=== PATIENT | female | born 1950 | race Caucasian/White ===

== ENCOUNTER 2017-05-26 23:07 | Observation (INO) | payer BC, MEDICARE ==
[2017-05-27 00:32] LABS: #Eosinphils 0.2 thou/uL (0.0-0.7); #Lymphocytes 1.7 thou/uL (1.20-3.40); #Neutrophils 10.2 thou/uL (1.40-6.50); %Basophils 0.1 % (0.0-1.0); %Eosinophils 1.5 % (0.0-10.0); %Lymphocytes 12.8 % (21.0-51.0); %Monocytes 7.5 % (0.0-10.0); %Neutrophils 77.9 % (42.0-75.0); Hemoglobin 12.4 g/dL (12.0-16.0); Mean Corpuscular HGB CONC 32.3 g/dL (32.0-36.0); Mean Corpuscular Hemoglobin 27.9 pg (27.0-31.0); Mean Corpuscular Volume 86.3 fl (81.0-99.0); Mean Platelet Volume 7.8 fL (7.4-10.4); Platelet Count 238 thou/uL (130-400); RBC Distribution Width 16.6 % (11.5-14.5); Red Blood Cell (RBC) Count 4.44 mill/uL (4.20-5.40); White Blood Cell (WBC) Count 13.1 thou/uL (4.8-10.8)
[2017-05-27 01:02] LABS: ALT (SGPT) 16 U/L (8-55); AST (SGOT) 22 U/L (5-34); Albumin 3.4 g/dL (3.4-4.8); Alkaline Phosphatase 66 U/L (40-150); Anion Gap 13 mmol/L (10-20); BUN (Urea Nitrogen) 25 mg/dL (9.8-20.1); Bilirubin, Total 0.3 mg/dL (0.2-1.2); CK (CPK) 563 U/L (29-168); Calc. Creatinine Clearance 0 mL/min (70-130); Calcium 8.4 mg/dL (7.8-10.44); Carbon Dioxide 24 mmol/L (23-31); Chloride 103 mmol/L (98-107); Estimated GFR-MDRD 41; Globulin 2.2 g/dL (2.4-3.5); Glucose 131 mg/dL (80-115); Potassium 3.8 mmol/L (3.5-5.1); Protein, Total 5.6 g/dL (6.0-8.3); Sodium 136 mmol/L (136-145)
[2017-05-27 01:05] LABS: CKMB 3.9 ng/mL (0-6.6); Troponin I 0.023 ng/mL (< 0.028)
[2017-05-27] MEDS ORDERED: Ondansetron HCl/PF 4 MG/2 ML Vial IVP PRN (02:23)
[2017-05-27] MEDS ORDERED: Acetaminophen 325 MG TAB PO PRN (02:23)
[2017-05-27] MEDS ORDERED: Ondansetron ODT 4 MG TAB SL PRN (02:23)
[2017-05-27] MEDS ORDERED: Fentanyl 100 MCG/2 ML VIAL SLOW IVP PRN (02:23)
[2017-05-27] MEDS ORDERED: cefTRIAXone\\ROCEPHIN 1 GM, Syringe 0.4 ML in Sterile Water 9.6 ML SLOW IVP SCH (02:30)
[2017-05-27 03:11] VITALS: BMI 57.1
[2017-05-27] MEDS ORDERED: Albuterol Sulfate 2.5 mg/3 ml Neb NEB PRN (03:52)
[2017-05-27] MEDS ORDERED: Loperamide HCl 2 MG CAP PO PRN (03:53)
[2017-05-27] MEDS ORDERED: Dextrose 50% Abboject 50 ML SYRINGE SLOW IVP PRN (03:58)
[2017-05-27] MEDS ORDERED: HumaLOG 300 UNITS/3 ML VIAL SC PRN (03:58)
[2017-05-27] MEDS ORDERED: Dextrose 5% in Water 1,000 ML IV PRN (03:58)
[2017-05-27] MEDS ORDERED: Dulaglutide [Trulicity] 0.75 MG SC SCH (04:15)
[2017-05-27] MEDS: Hydrocortisone 10 mg Tablet PO SCH ×3 (04:24→18:08)
[2017-05-27] MEDS: Levothyroxine Sodium 112 MCG TAB PO SCH (04:24)
[2017-05-27] MEDS: Levothyroxine Sodium 25 MCG TAB PO SCH (04:24)
[2017-05-27] MEDS: Sodium Chloride 0.9% 1,000 ML IV SCH ×2 (04:24→13:33)
[2017-05-27 04:26] LABS: #Eosinphils 0.2 thou/uL (0.0-0.7); #Monocytes 1.2 thou/uL (0.11-0.59); #Neutrophils 8.2 thou/uL (1.40-6.50); %Basophils 0.1 % (0.0-1.0); %Eosinophils 1.9 % (0.0-10.0); %Lymphocytes 17.2 % (21.0-51.0); %Monocytes 10.3 % (0.0-10.0); %Neutrophils 70.5 % (42.0-75.0); Hemoglobin 12.4 g/dL (12.0-16.0); Mean Corpuscular HGB CONC 32.4 g/dL (32.0-36.0); Mean Corpuscular Hemoglobin 28.4 pg (27.0-31.0); Mean Corpuscular Volume 87.7 fl (81.0-99.0); Mean Platelet Volume 8.2 fL (7.4-10.4); Platelet Count 242 thou/uL (130-400); RBC Distribution Width 16.5 % (11.5-14.5); Red Blood Cell (RBC) Count 4.36 mill/uL (4.20-5.40); White Blood Cell (WBC) Count 11.7 thou/uL (4.8-10.8)
[2017-05-27 04:37] LABS: Lactic Acid 1.3 mmol/L (0.5-2.2)
[2017-05-27 04:40] LABS: Anion Gap 12 mmol/L (10-20); BUN (Urea Nitrogen) 24 mg/dL (9.8-20.1); Calc. Creatinine Clearance 97 mL/min (70-130); Calcium 8.5 mg/dL (7.8-10.44); Carbon Dioxide 29 mmol/L (23-31); Chloride 102 mmol/L (98-107); Estimated GFR-MDRD 40; Glucose 103 mg/dL (80-115); Potassium 3.6 mmol/L (3.5-5.1); Sodium 139 mmol/L (136-145)
--- NOTE | 2017-05-27 07:47 | RAD ---
SINGLE VIE WOF THE CHEST: COMPARISON: 03/23/15. HISTORY: Abdominal pain and diarrhea. Dyspnea. FINDINGS: Single view of the chest shows a normal sized cardiomediastinal silhouette. There is no evidence of c onsolidation, mass, or pleural effusion. The bones are unremarkable. IMPRESSION: No evidence of acute cardiopulmonary disease. POS: [facility]
--- NOTE | 2017-05-27 08:09 | HP ---
PRIMARY CARE PHYSICIAN: Mariaa Escobar M.D. PRESENTING COMPLAINT: Abdominal pain, vomiting, diarrhea. HISTORY OF PRESENT ILLNESS: Ms. Shireen Bell is a 67-year-old female who presents to the emergency room with complaint of diarrhea which started around 1:00 p.m. today. She reports multiple episodes that were nonbloody, nonmucoid associated with right upper and lower quadrant abdominal pain describe d as sharp, does not radiate, rated 8/10, increased by movement and decreased after she was given fen tanyl. It was associated with episodes of vomiting, which were nonbilious and consisting of recently ingested meal. She had 3 episodes of vomiting. She reports eating a chicken sandwich about an hour before onset of symptoms. No history of eating any unusual meal and no sick contacts. She denies c hest pain, cough, shortness of breath, or sputum production. She has no recent antibiotic use. 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 PAST SURGICAL HISTORY: Lap band in 2007, temporary colostomy in the , and a pituitary gland rem oval in 1987. PSYCHIATRIC HISTORY: Depression. SOCIAL HISTORY: Denies smoking cigarette, drinking alcohol, or use of illicit drugs. ALLERGIES: DEMEROL, VIBRAMYCIN, GUAIFENESIN, and ATIVAN. REVIEW OF SYSTEMS: Constitutional: Negative. HEENT: Negative. Cardiovascular: Negative. Respir atory: Denies cough or shortness of breath. Gastrointestinal: Per HPI. Genitourinary: Negative. Musculoskeletal: Negative. Skin: Negative. Neurologic: Negative. Hematologic/Lymphatic: Negat pierce. Allergy/Immunology: Negative. Psychiatric: Negative. PHYSICAL EXAMINATION: VITAL SIGNS: Blood pressure 101/55, pulse rate 96, respiratory rate 22, temperature 99.9 degree Fahr enheit, oxygen saturation 94% on room air (she was desaturating to the 80s on room air). CONSTITUTIONAL: Not in acute distress. Appears nontoxic and pain free, alert and well oriented. HEENT: Normocephalic, atraumatic. Not pale, anicteric. Dry mucous membranes. RESPIRATORY: Vesicular breath sounds bilaterally. No wheezes, rales, or rhonchi. CARDIOVASCULAR: S1, S2 only. No murmurs, rubs or gallops. Regular rate and rhythm. ABDOMEN: Soft, mild tenderness in the right upper and lower quadrants. Bowel sounds normoactive. M ass noted in the left lower quadrant abdominal wall (the patient states that it is chronic). NEUROLOGIC: Alert and well oriented. No focal deficits. PSYCHIATRIC: Normal mood and affect. MUSCULOSKELETAL: No edema. SKIN: Warm, dry, well-perfused. No rashes or lesions. LABORATORY DATA: CBC with WBC of 13.1 with 77% neutrophils and 12.8% lymphocytes. Serum chemistry w ith elevated BUN/creatinine of 25/1.29 and lactic acid 2.4, glucose 131. Chest x-ray no acute findin gs. CT abdomen/pelvis shows finding of nonobstructing left renal calculus, stable fluid collection i n the anterior abdominal wall since 03/2015. ASSESSMENT AND PLAN: 1. Abdominal pain: She presented with abdominal pain with diarrhea and vomiting. Differentials inc lude colitis, acute gastroenteritis. The patient has been refused by the general surgeon as she has a history of a lap band. She is started on IV ceftriaxone and will review patient in the morning. I n the meantime, we will get stool studies to rule out other infectious causes like clostridium diffic ile, although this is less likely as the patient has no recent exposure to antibiotics. 2. Hypoxia. The patient from chart review, has a history of asthma and is not on any bronchodilator at home. We will continue oxygen supplementation, try to wean off and placed on albuterol nebulizer therapy. 3. Acute kidney injury. We will hydrate and reassess. 4. Hypertension. Blood pressure is well controlled, although she seems to be running hypotensive in the emergency room with hold antihypertensives for now. 5. Hyperlipidemia. We will continue atorvastatin. 6. Hypothyroidism. We will obtain TSH and continue levothyroxine. 7. Panhypopituitarism. We will continue Cortef and home medications. 8. Deep venous thrombosis prophylaxis with Lovenox. CODE STATUS: FULL CODE.
[2017-05-27] MEDS: Atorvastatin Calcium 40 MG TAB PO SCH (08:48)
[2017-05-27] MEDS: Gabapentin 300 MG CAP PO SCH ×2 (08:48→21:06)
[2017-05-27] MEDS: Famotidine 20 MG TAB PO SCH ×2 (08:48→21:06)
[2017-05-27] MEDS: Cyanocobalamin (Vitamin B-12) 1,000 MCG TAB PO SCH (08:48)
[2017-05-27] MEDS: Allopurinol 300 MG TAB PO SCH (08:49)
[2017-05-27] MEDS: Nabumetone 500 MG TAB PO SCH ×2 (09:28→21:06)
[2017-05-27] MEDS: Enoxaparin Sodium 40 MG/0.4 ML SYRINGE SC SCH (09:28)
[2017-05-27] MEDS: Acetaminophen/Codeine 30-300mg Tablet PO PRN (10:44)
--- NOTE | 2017-05-27 11:00 | CON ---
DATE OF CONSULTATION: 05/27/2017 GENERAL SURGERY CONSULTATION CHIEF COMPLAINT: Nausea, vomiting, and diarrhea. HISTORY OF PRESENT ILLNESS: This is a 67-year-old female who had the sudden onset of severe nausea, vomiting, abdominal pain, and diarrhea day before yesterday. She went to the emergency room at [facility] as she has [employer] insurance. Apparently, the surgeon there found that she has neal d a lap band placed 9 years ago and felt she needed to be transferred here. She has not had any prob bo with lap band, but it just has not been working, she has been gaining weight. The diarrhea is wa surinder, no blood. PAST MEDICAL HISTORY: Morbid obesity, hypertension, she has had questionable myocardial infarction i n the past. She has irritable bowel and hypopituitary. PAST SURGICAL HISTORY: She has had cholecystectomy. She had a pituitary tumor removed in 1987. She had a lap band in 2007. She reports that she has had a colectomy with colostomy which was then reve rsed by Dr. Cárdenas. She has had a ventral hernia repair with mesh by Dr. Kimble at [facility]. MEDICATIONS: Include hydrochlorothiazide, vitamin B2, atorvastatin, Robaxin, Tylenol #3, Relafen, am lodipine, omeprazole, Synthroid, hydrocortisone, allopurinol. ALLERGIES: She has allergies to DEMEROL, ATIVAN, GUAIFENESIN, VIBRAMYCIN, and IODINE. SOCIAL HISTORY: She is . She works at [employer]. No tobacco, no alcohol. FAMILY HISTORY: CVA and colon cancer. PHYSICAL EXAMINATION: VITAL SIGNS: Temperature 98, pulse 77, blood pressure 125/60. GENERAL: She is a morbidly obese female. Does not appear to be in any distress. HEENT: Unremarkable. LUNGS: Clear. HEART: Regular rate and rhythm. ABDOMEN: Morbidly obese. She has a bulge just above her umbilicus with an overlying scar. It does not reduce, mildly tender. She has diffuse tenderness throughout the abdomen, but this bulge is no m ore tender than anything else. EXTREMITIES: She is just morbidly obese. LABORATORY DATA AND IMAGING DATA: White count 11.7, hemoglobin and hematocrit 12 and 38 and platelet count 242. Electrolytes show an elevated creatinine of 1.3, BUN of 24. The CT was sent over from [facility], I was able to get our radiologist to read it. The lap band appeared to be in place. No obstruction there. She has subcutaneous fluid collection which does not appear to be infected, w hich she has had for a while. She has an acute colitis of the sigmoid, colon, and rectum. ASSESSMENT: Colitis, lap band status, morbid obesity, steroid dependent. PLAN: GI consultation. We will empty her lap band.
--- NOTE | 2017-05-27 11:04 | OP ---
DATE OF PROCEDURE: 05/27/2017 PREOPERATIVE DIAGNOSIS: Lap band in place. SURGEON: Riley De La Garza M.D. PROCEDURE PERFORMED: Removal of fluid from lap band. INDICATIONS: The patient is a 67-year-old morbidly obese female with a lap band that was transferred from [facility] because she was having abdominal pain. It turns out she has colitis, but they would not see her because she has a lap band. She has been vomiting. FINDINGS: A 6 mL of saline removed from the system to empty the band. PROCEDURE: The skin was prepped with alcohol. The port was accessed with the Macdonald needle, 6 mL of saline removed. She tolerated the procedure well.
--- NOTE | 2017-05-27 12:43 | PDOC.EVN ---
Event Note - Event Note Event Note: CC: Abdominal pain sun: pt was seen by hospitalist early this morning. C/O abdominal pain, improving with pain medication VS: Stable General: Awake, alert, oriented x3 HEENT: Anterior nares patent, nose normal CVS: S1S2 present, rrr, no murmur, no rubs, no gallop RS: No wheezing, no rhonchi, no accessory muscle usage seen GI: mild tender to palpate, distended, no guarding FOOD EDITOR: CN intact, no cerebellar signs Psych: Mood calm Labs: reviewed A/P: Pt is 67 yrs old female 1. Abdominal pain 2. MO 3. HTN 4. Hypothyroidism Plan surgery on boars. continue current treatment creatinine stable. continue iv fluids continue bp meds check labs in am case d/w pt & RN
--- NOTE | 2017-05-27 16:45 | CON ---
DATE OF CONSULTATION: 05/27/2017 HISTORY OF PRESENT ILLNESS: The patient is a 67-year-old female, who was in her normal sta te of health until the day prior to admission when she developed nausea, vomiting, and diarrhea. She reports generalized abdominal pain, which was crampy in nature. She did have some nausea and a sing le episode of vomiting. This vomitus was brownish in nature. She also had diarrhea, which was nonbl oody. She has had a similar episode, she said approximately 2 years prior when she was hospitalized here at [facility] and was seen by Dr. Dia. At that time, it was felt she had an infectious diarrhea. She has had a history of malignant polyp and underwent a colonoscopy by Dr. Cole in 2005. PAST MEDICAL HISTORY: Includes osteoarthritis, irritable bowel syndrome, diabetes mellitus, hyperten jorge alberto, and hypopituitarism. PAST SURGICAL HISTORY: Includes a cholecystectomy; pituitary removal; lap band; colostomy for perito nitis after colon perforation after colonoscopy performed out of town, this was done in the . MEDICATIONS: Included allopurinol 100 mg 1 p.o. daily; hydrocortisone 10 mg 1 p.o. daily, 20 mg q.a. m.; Synthroid 137 mcg 1 p.o. daily; omeprazole 20 mg p.o. daily; amlodipine 10 mg p.o. daily; Relafen 500 mg b.i.d.; Tylenol #3 of 30 mg p.o. daily; Robaxin 500 mg p.o. at bedtime; atorvastatin 40 mg p. o. at bedtime; vitamin D2 of 50,000 units 1 p.o. daily; hydrochlorothiazide 12.5 mg p.o. daily. ALLERGIES: Include DOXYCYCLINE, DEMEROL, GUAIFENESIN, IODINE, LORAZEPAM, MEPERIDINE, and VANCOMYCIN. SOCIAL HISTORY: She does not smoke, does not drink. 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 FAMILY HISTORY: Negative for GI or liver disease. REVIEW OF SYSTEMS: Constitutional: No fever or chills, no weight loss. Eyes: No blurred vision or double vision. ENT: No sore throat or earaches. Cardiovascular: No chest pain or palpitation. P ulmonary: No shortness of breath, cough or wheezing. Gastrointestinal: See above. : No hematur ia or dysuria. Musculoskeletal: No joint pain or muscle weakness. Skin: No rashes. Neurologic: No numbness or seizure activity. PHYSICAL EXAMINATION: GENERAL: Shows a morbidly obese female, in no acute distress. VITAL SIGNS: Temperature is 98.6, pulse 66, respiratory rate 18, blood pressure 146/68. HEENT: Unremarkable. NECK: Supple. CHEST: Clear. CARDIOVASCULAR: Regular rate and rhythm. ABDOMEN: Soft. Diffusely tender, but mildly so. She has a lump in the mid abdomen, which is consis tent with her seroma that has been seen on previous CT. RECTAL: Deferred. EXTREMITIES: Normal. NEUROLOGIC: Nonfocal. LABORATORY DATA: Shows a white blood cell count 11.7, hemoglobin 12.4, and hematocrit 38.3. Food Mobile Driver gary: Significant for BUN 24, creatinine 1.34. CBC over at [facility] showed a wh ite blood cell count of 16.9, hemoglobin 13, hematocrit 41.3. C. difficile was negative. Urinalysis was essentially negative. IMAGING: CT showed a large anterior abdominal wall fluid collection. There is a midline gastric ban ding device was noted, but no other abnormalities. ASSESSMENT: 1. Acute nausea, vomiting, and diarrhea. 2. History of a lap band -- according to notes, the general surgeon at [facility] refused admissi on there because of the lap band had migrated to the gastroesophageal junction. This is difficult to rectify since the patient really had no prior problems with her lap band. Despite this, Dr. Frederic longo emoved the fluid out of the lap band and this should take care of any symptomatic problems if the lap band did indeed migrate. 3. History of pancreatitis. 4. History of malignant polyp -- the patient's last colonoscopy was 2005. 5. Morbid obesity. 6. Generalized abdominal pain. RECOMMENDATIONS: The patient is in need of colonoscopy and she has been unsuccessful to scheduling t [facility] as an outpatient. Considering her medical problems, we will go ahead and perform that while she was here. At the same time, we will add an EGD to see if there is problem with a lap band migration.
[2017-05-27] MEDS ORDERED: GoLYTELY 4,000 ml Bottle PO SCH (18:15)
[2017-05-28] MEDS: Levothyroxine Sodium 25 MCG TAB PO SCH (05:12)
[2017-05-28] MEDS: Levothyroxine Sodium 112 MCG TAB PO SCH (05:12)
[2017-05-28] MEDS: Acetaminophen/Codeine 30-300mg Tablet PO PRN ×2 (05:12→16:40)
[2017-05-28 05:13] LABS: Eosinophils 3 % (0-10); Hemoglobin 10.8 g/dL (12.0-16.0); Hemoglobin A1c 5.8 % (4.0-6.0); Lymphocytes 23 % (21-51); MDiff Complete? YES; Mean Corpuscular HGB CONC 32.8 g/dL (32.0-36.0); Mean Corpuscular Hemoglobin 28.6 pg (27.0-31.0); Mean Corpuscular Volume 87.2 fl (81.0-99.0); Mean Platelet Volume 7.8 fL (7.4-10.4); Monocytes 4 % (0-10); Neutrophil 69 % (42-75); PLT Morphology Comment Appears Adequate; Platelet Count 215 thou/uL (130-400); RBC Distribution Width 16.4 % (11.5-14.5); RBC Morphology Normal; Reactive Lymphocytes 1 % (0-10); Red Blood Cell (RBC) Count 3.77 mill/uL (4.20-5.40); White Blood Cell (WBC) Count 9.6 thou/uL (4.8-10.8)
[2017-05-28 05:19] LABS: Anion Gap 10 mmol/L (10-20); BUN (Urea Nitrogen) 11 mg/dL (9.8-20.1); Calc. Creatinine Clearance 165 mL/min (70-130); Calcium 8.5 mg/dL (7.8-10.44); Carbon Dioxide 27 mmol/L (23-31); Chloride 107 mmol/L (98-107); Estimated GFR-MDRD 73; Glucose 84 mg/dL (80-115); Potassium 3.8 mmol/L (3.5-5.1); Sodium 140 mmol/L (136-145)
[2017-05-28] MEDS: Enoxaparin Sodium 40 MG/0.4 ML SYRINGE SC SCH (08:19)
[2017-05-28] MEDS: Atorvastatin Calcium 40 MG TAB PO SCH (08:24)
[2017-05-28] MEDS: Hydrocortisone 10 mg Tablet PO SCH ×2 (08:24→18:03)
[2017-05-28] MEDS: Gabapentin 300 MG CAP PO SCH ×2 (08:24→20:41)
[2017-05-28] MEDS: Allopurinol 300 MG TAB PO SCH (08:25)
[2017-05-28] MEDS: Nabumetone 500 MG TAB PO SCH ×2 (08:25→20:41)
[2017-05-28] MEDS: Cyanocobalamin (Vitamin B-12) 1,000 MCG TAB PO SCH (08:25)
[2017-05-28] MEDS: Famotidine 20 MG TAB PO SCH ×2 (10:10→20:41)
[2017-05-28] MEDS ORDERED: PROPOFOL 200 MG/20 ML VIAL ONE (13:55)
[2017-05-28] MEDS ORDERED: Lidocaine 1% PF 5 ML VIAL ONE (13:55)
--- NOTE | 2017-05-28 14:32 | PDOC.PN ---
- Subjective Encounter Start Date: 05/28/17 Encounter Start Time: 07:45 -: old records requested/rev Pt seen and exmained, chart reviewed in its entirety. Ruth patton my first visit with this patient. Pt admitted yesterday for abs pain, n/V. alla suggested Lap Band migration, [facility] refused, so pt trnasferred here. Pt admitted, seen by Dr Pedraza who removed fluid form the lap band and GI consulte.d Dr Munguia saw the pat and arranged for colonoscopy and EGD today for evaluation. Pt NPO, carlene Bowel prep ok. less tender to abdomen, slept okay No f/C, no N/V, no CP or SOB, no new complaints 10 point ROS performed and neg for all systems except as per HPI - Objective Resuscitation Status: Resuscitation Status FULL:Full Resuscitation MAR Reviewed: Yes Vital Signs & Weight: Vital Signs (12 hours) Temp Pulse Resp BP Pulse Ox 05/28/17 10:43 97.6 F 62 20 134/62 91 L 05/28/17 08:20 98.9 F 65 22 H 05/28/17 08:00 98.9 F 65 22 H 146/65 H 91 L 05/28/17 04:25 99.5 F 72 16 133/63 92 L Weight Weight 325 lb 4.8 oz I&O: 05/27/17 05/28/17 05/29/17 06:59 06:59 06:59 Intake Total 118 2670 Output Total 300 1750 Balance -182 920 Result Diagrams: 05/28/17 04:32 05/28/17 04:32 Additional Labs: Accuchecks 05/28/17 05/28/17 05/27/17 11:00 06:22 21:11 POC Glucose 92 86 147 H 05/27/17 16:25 POC Glucose 121 H Radiology Reviewed by me: Yes EKG Reviewed by me: Yes Phys Exam - Physical Examination Constitutional: NAD HEENT: PERRLA, moist MMs, sclera anicteric, oral pharynx no lesions Neck: no nodes, no JVD, supple, full ROM Respiratory: no wheezing, no rales, no rhonchi, clear to auscultation bilateral Cardiovascular: RRR, no significant murmur, no rub Gastrointestinal: soft, non-tender, no distention, positive bowel sounds Musculoskeletal: pulses present, edema present Neurological: non-focal, normal sensation, moves all 4 limbs Lymphatic: no nodes Psychiatric: normal affect, A&O x 3 Skin: no rash, normal turgor, cap refill <2 seconds Dx/Plan (1) Colitis presumed to be due to infection Code(s): A09 - INFECTIOUS GASTROENTERITIS AND COLITIS, UNSPECIFIED Status: Acute Comment: sherrie culture negative, c diff neg, fecal leukocyes positive. for colonoscopy today (2) Gastroenteritis Code(s): K52.9 - NONINFECTIVE GASTROENTERITIS AND COLITIS, UNSPECIFIED Status : Acute (3) Asthma Code(s): J45.909 - UNSPECIFIED ASTHMA, UNCOMPLICATED Status: Chronic Qualifiers: Asthma severity: unspecified severity Asthma persistence: unspecified Asthma complication type: unspecified Qualified Code(s): J45.909 - Unspecified asthma, uncomplicated (4) Diabetes Code(s): E11.9 - TYPE 2 DIABETES MELLITUS WITHOUT COMPLICATIONS Status: Chronic Qualifiers: Diabetes mellitus type: type 2 Diabetes mellitus complication status: with unspecified complications Qualified Code(s): E11.8 - Type 2 diabetes mellitus with unspecified complications (5) Hypertension Code(s): I10 - ESSENTIAL (PRIMARY) HYPERTENSION Status: Chronic Qualifiers: Hypertension type: essential hypertension Qualified Code(s): I10 - Essential (primary) hypertension (6) Hypothyroid Code(s): E03.9 - HYPOTHYROIDISM, UNSPECIFIED Status: Chronic Qualifiers: Hypothyroidism type: acquired Qualified Code(s): E03.9 - Hypothyroidism, unspecified (7) IBS (irritable bowel syndrome) Status: Chronic Qualifiers: Irritable bowel syndrome type: with diarrhea Qualified Code(s): K58.0 - Irritable bowel syndrome with diarrhea (8) Morbid obesity due to excess calories Code(s): E66.01 - MORBID (SEVERE) OBESITY DUE TO EXCESS CALORIES Status: Chronic (9) Panhypopituitarism Code(s): E23.0 - HYPOPITUITARISM Status: Chronic - Plan cont current plan of care, PT/OT, out of bed/ambulate, DVT proph w/SCDs * . follow up on endoscopy results
--- NOTE | 2017-05-28 18:39 | OP ---
DATE OF PROCEDURE: 05/28/2017 PROCEDURES: Esophagogastroduodenoscopy with biopsy, colonoscopy with biopsy. INDICATION FOR PROCEDURE: Abdominal pain, diarrhea. DESCRIPTION OF PROCEDURE: After the risks and benefits of the procedure were explained to the patien t including risks of bleeding, infection, perforation, reaction to anesthesia and/or pain, informed c onsent was obtained. Patient was then taken to the endoscopy suite where deep sedation was administe red via propofol and anesthesia support. The standard gastroscope was then introduced into the mouth with intubation of the esophagus, stomach and proximal small intestine with the findings listed belo w. The patient tolerated the procedure well with no immediate perioperative complications. FINDINGS: ESOPHAGUS: Normal appearing mucosa was seen in the proximal, mid and distal esophagus. There was no evidence of erosions, ulcerations, mass lesions or active/recent bleeding. STOMACH: Normal appearing mucosa was seen in the gastric cardia fundus, body, antrum and incisura. There was no evidence of erosions, ulcerations, mass lesions or active/recent bleeding. DUODENUM: Normal appearing mucosa was seen in both the duodenal bulb and second portion of the duode num. There was no evidence of erosions, ulcerations, mass lesions or active/recent bleeding. Random biopsies were taken from the second portion of the small intestine for evaluation of diarrhea and po ssible infectious or malabsorptive etiology. IMPRESSION: Normal upper endoscopy. RECOMMENDATIONS: Proceed to colonoscopy. PROCEDURE: Colonoscopy. DESCRIPTION OF PROCEDURE: After the risks and benefits of the procedure were explained to the patien t including risks of bleeding, infection, perforation, reaction to anesthesia and/or pain, informed c onsent was obtained for the colonoscopy. The patient was then taken to the endoscopy suite where jelani p sedation was administered via propofol and anesthesia support. The standard colonoscope was then i ntroduced into the rectum with advancement to the cecum with mild difficulty. The colonic preparatio n was fair to good with aggressive irrigation and suctioning. The patient tolerated the procedure we ll with no immediate perioperative complications. DIGITAL RECTAL EXAMINATION: Small external hemorrhoids were seen on external examination. COLON FINDINGS: Normal appearing mucosa was seen at the ileocecal valve, appendiceal orifice and wit hin the cecum itself. Normal appearing mucosa was seen in the ascending, proximal and mid transverse colon; however, at approximately 80 cm which correlated with the approximate splenic flexure, there were diffuse ulcerations and increased mucosal erythema extending from 80 cm to 70 cm. There was no evidence of active/recent bleeding or mass lesions associated with these ulcerations. Multiple biops ies were taken from this region and placed in a jar for evaluation. Of note, minimal bleeding was no dong upon obtaining these biopsy samples. Just distal to the area of ulceration between 60-70 cm, the re was some increased mucosal erythema, mild granularity and loss of vascularity, but then starting a t 60 cm, normal appearing mucosa was seen until 40 cm. At approximately 40 cm past the anal verge, t he surgical change associated with an end-to-side anastomosis was seen with retained surgical drake seen during this evaluation. Just distal to the anastomosis, 2-3 small superficial were also seen s imilar in appearance to the ulcerations seen more proximally. Normal appearing mucosa was then seen in the sigmoid colon and rectum. Small internal hemorrhoids were seen on rectal retroflexion. IMPRESSION: 1. Diffuse ulcerations seen from 80 to 70 cm past the anal verge correlating with the splenic flexur e and appearing to be ischemic colitis. 2. Surgical changes associated with end-to-side colonic anastomosis seen at 40 cm. 3. Mild ulcerations were seen at the surgical anastomosis as well. 4. Both internal and external hemorrhoids. RECOMMENDATIONS: 1. Follow with primary inpatient team. 2. We would maintain normotensive pressures in this patient given probable ischemic changes noted on colonoscopy today. 3. Would obtain CT or MR angiography based on the patient's renal function and evaluation of possibl e stenoses contributing to the ischemic changes noted on colonoscopy today. 4. We will continue to trend hemoglobin and hematocrit and transfuse as necessary to maintain hemogl obin and hematocrit of 7/21. 5. Follow up on biopsies obtained today.
[2017-05-28] MEDS: predniSONE 50 MG TAB PO SCH (20:02)
[2017-05-28] MEDS ORDERED: Lisinopril 20 MG TAB PO SCH (23:45)
[2017-05-28] MEDS ORDERED: hydrALAZINE 20 MG/ML VIAL SLOW IVP SCH (23:45)
[2017-05-28] MEDS ORDERED: hydrALAZINE 20 MG/ML VIAL SLOW IVP PRN (23:47)
[2017-05-29] MEDS: predniSONE 50 MG TAB PO SCH ×2 (02:01→08:04)
[2017-05-29] MEDS: Acetaminophen/Codeine 30-300mg Tablet PO PRN ×2 (02:02→08:16)
[2017-05-29] MEDS: Levothyroxine Sodium 25 MCG TAB PO SCH (05:14)
[2017-05-29] MEDS: Levothyroxine Sodium 112 MCG TAB PO SCH (05:14)
[2017-05-29] MEDS ORDERED: diphenhydrAMINE 50 MG CAP PO SCH (08:00)
[2017-05-29] MEDS: Cyanocobalamin (Vitamin B-12) 1,000 MCG TAB PO SCH (08:04)
[2017-05-29] MEDS: Hydrocortisone 10 mg Tablet PO SCH (08:05)
[2017-05-29] MEDS: Gabapentin 300 MG CAP PO SCH (08:05)
[2017-05-29] MEDS: Famotidine 20 MG TAB PO SCH (08:05)
[2017-05-29] MEDS: Atorvastatin Calcium 40 MG TAB PO SCH (08:05)
[2017-05-29] MEDS: Nabumetone 500 MG TAB PO SCH (08:08)
[2017-05-29] MEDS: Allopurinol 300 MG TAB PO SCH (08:08)
[2017-05-29] MEDS: Enoxaparin Sodium 40 MG/0.4 ML SYRINGE SC SCH (08:08)
[2017-05-29] MEDS ORDERED: Hydrochlorothiazide 25 MG TAB PO SCH (09:00)
[2017-05-29] MEDS ORDERED: Amlodipine 10 MG TAB PO SCH (09:00)
[2017-05-29 11:35] VITALS: BP 151/68; TEMP 98.5
--- NOTE | 2017-05-29 12:02 | MRI ---
MRA OF ABDOMEN WITH CONTRAST: Date: 05/29/17 COMPARISON: None. HISTORY: Ischemic colitis seen on colonoscopy. TECHNIQUE: A MRA of the abdomen was performed. 3D [id number] imaging was used. 3D resection reformats were p erformed. FINDINGS: No significant irregularity is seen in the aorta to suggest significant atherosclerotic disease. The celiac trunk, SMA, and ANAIS all appear patent. There is a single renal artery on each side without sig nificant narrowing to suggest atherosclerotic disease. The aorta bifurcates into normal caliber commo n iliac arteries. The internal iliac arteries and external iliac arteries are also patent. IMPRESSION: No obvious MRA abnormality of the aorta or its branch vessels. POS: [facility]
[2017-05-29] MEDS ORDERED: Hydrocortisone 10 mg Tablet PO SCH (13:00)
--- NOTE | 2017-05-29 16:22 | DIS ---
DATE OF ADMISSION: 05/27/2017 DATE OF DISCHARGE: 05/29/2017 PRIMARY CARE PHYSICIAN: Chucho Moran M.D. DISCHARGE DIAGNOSES: 1. Abdominal pain and diarrhea. 2. New diagnosis of ischemic colitis. 3. Panhypopituitarism. 4. Essential hypertension. 5. Diabetes mellitus type 2. 6. Severe obesity. 7. Status post Lap-Band procedure. 8. Asthma, unspecified. 9. 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 10. Irritable bowel syndrome. CONSULTATIONS: 1. Gastroenterology, Dr. Rich Munguia. 2. General Surgery, Dr. Riley De La Garza. PROCEDURES: 1. Lap-Band fluid aspiration 05/27/[address] Riley De La Garza, left with no fluid in the reservoir. 2. EGD and colonoscopy 05/28/2017 showing anastomotic and splenic flexure ischemic enteritis. Biops ies were taken and are pending. HOSPITAL COURSE: Ms. Bell is a 67-year-old female with the above history who presented to the emerg ency department on late 05/26/2017 with complaints of abdominal pain, vomiting, diarrhea. She has neal d about 12 hours of symptoms when she presented for evaluation. Workup in the emergency department s howed a stable anterior abdominal wall fluid collection, lactic acid is mildly elevated at 2.4, BUN a nd creatinine are elevated from baseline to 25 and 1.9 and a slightly elevated white count of 13.1. Patient was mildly hypoxic and did have the increased creatinine, so we are called for admission. HOSPITAL COURSE: The patient was seen and examined by Dr. Johnson and admitted inpatient. General Surgery was consulted who evaluated the patient in the morning on 05/27/2017 and aspirated her reserv oir for Lap-Band removing all fluid. There was some concern that her Lap-Band had written up. The e sophagus was causing obstruction. Concluding his procedure, Dr. De La Garza did ask Gastroenterology to visit the patient and she was seen la tyler in the day by Dr. Rich Munguia. On his evaluation, he thought she would benefit from upper and lower endoscopies, so arrangements wer e made for that to occur. On 05/28/2017, the patient did undergo colonoscopy and EGD. She was found to have what looked like i schemic colitis at the splenic flexure and had a prior anastomotic site from gastric bypass surgery. Biopsies were obtained and she returned to the floor. She was initially cleared for discharge, but was still too groggy, after discussion with Dr. Marcano who did her endoscopies. We decided to keep he r overnight and go ahead and image her abdomen with angiography. Today, abdominal MRI with MRA was done. The patient was stable for discharge and was discharged home in stable condition. Per the MRA report, there was no abnormality that was obvious to the aorta or its branch vessels. PHYSICAL EXAMINATION: The patient was seen and examined on the day of discharge. Discharge plan and disposition was discussed with the patient [id number] at the bedside. DISCHARGE MEDICATIONS: 1. Tylenol No. 3 one 1 q.6 hours as needed. 2. Allopurinol 100 mg daily. 3. Amlodipine 10 mg daily. 4. Atorvastatin 40 mg p.o. at bedtime. 5. Cyanocobalamin 50 mcg daily. 6. Trulicity 0.75 mg subcu weekly. 7. Ergocalciferol 5000 units p.o. daily. 8. Gabapentin 300 mg p.o. b.i.d. 9. Hydrochlorothiazide 12.5 mg daily. 10. Hydrocortisone 20 mg p.o. q.a.m. and 10 mg p.o. q.p.m. 11. Solu-Medrol intramuscular as needed for added stress. 12. Levothyroxine 137 mcg daily. 13. Lisinopril 20 mg p.o. at bedtime. 14. Loperamide 2 mg as needed. 15. Mag oxide 400 mg p.o. daily. 16. Methocarbamol 750 mg p.o. q.4 hours p.r.n. muscle spasm. 17. Nabumetone 500 mg p.o. b.i.d. 18. Omeprazole 20 mg p.o. at bedtime. FOLLOWUP APPOINTMENTS: 1. Primary care physician, Dr. Moran within a week. 2. Dr. Marcano next week. DISCHARGE DIET: No restrictions. DISCHARGE ACTIVITY: Per cardiopulmonary limits. DISCHARGE CONDITION: Stable. DISPOSITION: Will be discharged home via private vehicle. She is going to be staying with her siste r for the next couple of days.
[2017-05-29] MEDS ORDERED: Lisinopril 20 MG TAB PO SCH (21:00)
== END 2017-05-29 13:40 | disposition home or self-care (01) ==
LOC: ERS 23:07 → 2SW 05-27 01:55
PROVIDERS: ADMIT Internal Medicine; ATTEND Internal Medicine
PROC: 0DW63CZ Revision of Extraluminal Device in Stomach, Percutaneous Approach (ICD-10-PCS; principal; 2017-05-27)
PROC: 0DJ08ZZ Inspection of Upper Intestinal Tract, Via Natural or Artificial Opening Endoscopic (ICD-10-PCS; 2017-05-28)
PROC: 0DBL8ZX Excision of Transverse Colon, Via Natural or Artificial Opening Endoscopic, Diagnostic (ICD-10-PCS; 2017-05-28)
DX: K55.9 Vascular disorder of intestine, unspecified (principal); K58.9 Irritable bowel syndrome, unspecified; E89.3 Postprocedural hypopituitarism; E03.9 Hypothyroidism, unspecified; K64.4 Residual hemorrhoidal skin tags; K64.8 Other hemorrhoids; M19.90 Unspecified osteoarthritis, unspecified site; J45.909 Unspecified asthma, uncomplicated; E11.9 Type 2 diabetes mellitus without complications; F32.9 Major depressive disorder, single episode, unspecified; N17.9 Acute kidney failure, unspecified; I10 Essential (primary) hypertension; R09.02 Hypoxemia; E78.5 Hyperlipidemia, unspecified; E66.01 Morbid (severe) obesity due to excess calories; Z68.43 Body mass index [BMI] 50.0-59.9, adult; Z98.84 Bariatric surgery status; Z98.890 Other specified postprocedural states; Z98.0 Intestinal bypass and anastomosis status; Z88.5 Allergy status to narcotic agent; Z88.8 Allergy status to other drugs, medicaments and biological substances; Z88.1 Allergy status to other antibiotic agents; Z91.041 Radiographic dye allergy status; Z79.52 Long term (current) use of systemic steroids; Z79.84 Long term (current) use of oral hypoglycemic drugs; Z90.49 Acquired absence of other specified parts of digestive tract
CPT/HCPCS: 36415; 36416; 71045; 74174; 74185; 80048; 80053; 82550; 82553; 83036; 83605; 83630; 84443; 84484; 85007; 85025; 85027; 87045; 87046; 87324; 87449; 87899; 88305; 93005; 94760; 96360; 96361; 96372; 96374; C8900; G0378; J0360; J1650; J2001; J2704

== ENCOUNTER 2018-01-24 09:38 | Outpatient (CLI) | payer BC, MEDICARE ==
--- NOTE | 2018-01-24 13:34 | MRI ---
LUMBAR SPINE MRI WITHOUT IV CONTRAST: HISTORY: A 67-year-old female with a history of lumbar radicular pain and low back pain, weakness in both legs . FINDINGS: Multiplanar, multisequence MRI examination of the lumbar spine is performed. Conus medullaris region is unremarkable terminating at L2. There are several circumscribed renal nodular foci of varying si gnal characteristics. One of these appears to be a fatty density probably representing a small angio myelolipoma. Several other of these have more of an appearance of cysts including a possible hemorrh agic cyst. Depending on concern, particularly if there is evidence for hematuria or concern, foll owup abdomen and pelvis CT scan with multiphase imaging for renal mass protocol. T12-L1 demonstrates extensive disk-osteophytosis changes with ligament and facet hypertrophic changes with moderate central canal and lateral recess stenosis and mild to moderate bilateral foraminal valdez nosis. At L1-L2, posterior disk-osteophytosis with mild central canal and lateral recess stenosis. At L2-L3, prominent ligament and facet hypertrophic changes with moderate lateral recess stenosis and moderate to severe left foraminal stenosis. At L3-L4, left posterolateral disk-osteophytosis with moderate lateral recess stenosis worse on the l eft side and marked left foraminal stenosis. At L4-L5, prominent facet arthrosis with a considerable amount of fluid within the facet joints with moderate bilateral lateral recess stenosis and moderate to severe bilateral foraminal stenosis. At L5-S1, bilateral facet arthrosis with fluid within the joints without significant central canal st enosis and mild right foraminal stenosis. NO significant abnormal marrow signal. IMPRESSION: Variable severity multilevel disk-osteophytosis with central canal, lateral recess, and foraminal valdez nosis. 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 Several others are incompletely characterized and could represent cysts inc luding a possible at least partially hemorrhagic cyst. POS: DAGOBERTO
--- NOTE | 2018-01-24 13:36 | MRI ---
MRI CERVICAL SPINE WITHOUT CONTRAST: 01/24/2018 HISTORY: Bilateral arm numbness and pain extending down the left upper extremity. Cervical radiculopathy. TECHNIQUE: Multiplanar, multisequence MR imaging of the cervical spine is obtained without contrast. FINDINGS: An empty sella turcica is noted. Sagittal STIR imaging demonstrates no focal area of osseous marrow edema. Detailed assessment for central canal and/or neural foraminal stenosis is limited secondary t o persistent patient motion artifact on axial imaging. There is mild degenerative change at the atla ntoaxial interspace. C2-C3: No significant central canal or neural foraminal stenosis. C3-C4: Mild bilateral facet and uncovertebral osteophyte formation, right greater than left. Mild r ight neural foraminal stenosis. No significant central canal or left neural foraminal stenosis. C4-C5: Disk space narrowing and minimal disk bulge with no significant central canal stenosis. Mild bilateral facet and uncovertebral osteophyte formation. Central disk herniation partially effaces t he ventral thecal sac and causes mild central canal stenosis. C5-C6: Disk space narrowing, disk desiccation, mild disk bulge, and anterior osteophyte formation. No significant central canal stenosis. Facet and uncovertebral osteophyte formation, left greater th an right. Moderate left neural foraminal stenosis. Mild right neural foraminal stenosis. C6-C7: Disk space narrowing, disk desiccation, and mild disk bulge, with partial effacement of the v entral thecal sac. No significant central canal stenosis. Facet and uncovertebral osteophyte format ion noted with mild bilateral neural foraminal stenosis. C7-T1: No significant central canal or neural foraminal stenosis. Mild bilateral facet hypertrophy. No focal area of abnormal signal intensity identified within the cervical cord. IMPRESSION: Motion limited examination of the cervical spine, demonstrating degenerative change, as detailed abov e, most prominent at C4-C5, C5-C6, and C6-C7. POS: C
== END 2018-01-24 09:39 | disposition home or self-care (01) ==
LOC: TBSIIMAG 09:38
PROVIDERS: ATTEND Nurse Practitioner Family
DX: M47.22 Other spondylosis with radiculopathy, cervical region (principal); M48.061 Spinal stenosis, lumbar region without neurogenic claudication; M48.07 Spinal stenosis, lumbosacral region; M25.78 Osteophyte, vertebrae
CPT/HCPCS: 72141; 72148

== ENCOUNTER 2019-11-26 16:15 | Observation (INO) | payer MEDICARE, OTHER ==
[2019-11-26] MEDS ORDERED: HYDROcodone/Acetaminophen 5/325 mg Tablet ONE (19:39)
[2019-11-26] MEDS ORDERED: Dextrose 50% Abboject 50 ML SYRINGE SLOW IVP PRN (20:12)
[2019-11-26] MEDS ORDERED: Insulin Regular 300 UNITS/3 ML VIAL SC PRN (20:12)
[2019-11-26] MEDS ORDERED: Ondansetron ODT 4 MG TAB PO PRN (20:12)
[2019-11-26] MEDS ORDERED: Dextrose 5% in Water 1,000 ML IV PRN (20:12)
[2019-11-26] MEDS ORDERED: Ibuprofen 200 MG TAB PO PRN (20:18)
[2019-11-26] MEDS ORDERED: traMADol HCl 50 MG TAB PO PRN (20:18)
[2019-11-26] MEDS ORDERED: Sodium Chloride 0.9% 1,000 ML IV SCH (20:30)
[2019-11-26] MEDS: Acetaminophen 500 MG TAB PO SCH (23:17)
[2019-11-26] MEDS: traMADol HCl 50 MG TAB PO SCH (23:17)
[2019-11-26] MEDS: Cyclobenzaprine 10 MG TAB PO PRN (23:17)
[2019-11-26 23:31] LABS: Anion Gap 15 mmol/L (10-20); BUN (Urea Nitrogen) 21 mg/dL (9.8-20.1); Calc. Creatinine Clearance 0 mL/min (70-130); Carbon Dioxide 28 mmol/L (23-31); Chloride 99 mmol/L (98-107); Estimated GFR-MDRD 55; Glucose 220 mg/dL (80-115); Potassium 3.7 mmol/L (3.5-5.1); Sodium 138 mmol/L (136-145)
--- NOTE | 2019-11-27 00:39 | HP ---
This is Chayo Arias NP dictating a report for Linus Mirza MD. REQUESTING: Dr. Carranza. PRIMARY CARE PHYSICIAN: Carlos Jackson MD CONSULTS: Orthopedic Surgery, Dr. Shell. CHIEF COMPLAINT: Mechanical fall right knee pain. HISTORY OF PRESENT ILLNESS: This is a 69-year-old female who presented to the emergency room after a fall. The patient states that she has been living at her sister's house and moving into an assisted living facility when she was getting out of the vehicle. Reports that her right leg gave out causing her to fall to the ground onto her right leg and buttocks. The patient reported immediate right knee pain. The patient denies hitting her head or losing consciousness. The patient denies feeling weak, dizzy, shortness of breath before falling. The patient usually uses a walker to ambulate. The patient denies any other injuries or complaints. The patient was found to have a right tibial plateau fracture in which the emergency room contacted Orthopedic Surgery and stated this is nonoperative at this time. The emergency room attempted to get the patient placed to inpatient rehab but there were no beds available. Trauma Service was asked to admit the patient for pain control and physical and occupational therapy. REVIEW OF SYSTEMS: A 10-point review of systems is negative unless otherwise indicated in the above HPI. ALLERGIES: IODINE TOPICAL AND CONTRAST, ATIVAN, GUAIFENESIN, VIBRAMYCIN, DEMEROL. PAST HISTORY HISTORY: Type 2 diabetes, pituitary disorder, irritable bowel syndrome, obesity, hyperlipidemia, hypertension, asthma, hypothyroidism. SURGICAL HISTORY: Pituitary, cholecystectomy, cataract, lap band 10 years ago. SOCIAL HISTORY: Denies alcohol use, denies ever smoking, denies illicit drug use, uses a walker to ambulate. MEDICATIONS: 1. Cortef 20 mg q.a.m. and 10 mg at bedtime. 2. Levothyroxine 125 mcg daily. 3. Insulin sliding scale. 4. Hydrochlorothiazide 12.5 mg daily. 5. Vitamin D. 6. Vitamin B12. 7. Lisinopril 20 mg at bedtime. 8. Albuterol 200 mg p.o. at bedtime. 9. Amlodipine 10 mg p.o. at bedtime. 10. Atorvastatin 10 mg q.a.m. OBJECTIVE: VITAL SIGNS: Blood pressure 143/92, respirations 18, pulse 74, SpO2 of 97% on room air, temperature 98.1. GENERAL: Elderly female, obese, awake, alert, in no distress. HEENT: Head is atraumatic, normocephalic. Pupils are equal bilateral. Mucous membranes are moist. Normal conjunctiva. NECK: Normal range of motion. No cervical spine tenderness, trachea midline, no JVD. RESPIRATORY: Equal chest rise and fall, respirations are even and nonlabored, bilateral breath sounds clear with no wheezing, rales, or rhonchi. CARDIOVASCULAR: Regular rate, regular rhythm, no murmurs, +1 bilateral pitting edema which is chronic. BACK: Unremarkable. EXTREMITIES: Moves all extremities, neurovascularly intact x4. The patient has a posterior leg splint with Mc wrap in place to right lower extremity. Cap refill is less than 2 seconds. NEUROLOGIC: No focal deficits. GCS 15. LABORATORY DATA: Sodium 138, potassium 3.7, chloride 99, BUN 21, creatinine 1.01, estimated GFR 55, glucose 220, calcium 9.0. WBC 13.3, RBC 4.46, hemoglobin 12.7, hematocrit 41.0, platelets 291. DIAGNOSTICS: Right knee impression: Step-off at the junction of the distal femoral shaft and condyles. No joint effusion. Osteoarthritis in the medial compartment. ASSESSMENT: 1. Mechanical fall. 2. Right lateral tibial plateau fracture, nonoperative. 3. History of diabetes. 4. Hypertension. 5. Gastroesophageal reflux disease. 6. Hypothyroidism. 7. Neuropathy. 8. B12 deficiency. 9. Gout. 10. Arthritis. 11. Irritable bowel syndrome. 12. Panhypopituitarism. PLAN: Observation with supportive care and pain control. Diabetic diet as tolerated. Gentle IV fluids overnight. Insulin sliding scale. The patient has been accepted to inpatient rehab, but no bed was available today. Hopefully, bed will be available tomorrow and the patient can be discharged to inpatient rehab, for continued physical and occupational therapy. Nonweightbearing right lower extremity with splint at all times. The plan will be discussed with the attending after this dictation. The plan was discussed with the patient who agrees. Job ID: [id number]
[2019-11-27] MEDS: Famotidine 20 MG TAB PO SCH ×2 (00:41→08:18)
[2019-11-27] MEDS: Senokot S 8.6-50 MG TAB PO SCH ×2 (00:41→08:19)
[2019-11-27 00:56] VITALS: BMI 59.6
[2019-11-27 05:32] LABS: Mean Corpuscular HGB CONC 33.1 g/dL (32.0-36.0); Mean Corpuscular Volume 90.7 fL (78.0-98.0); Mean Platelet Volume 7.8 fL (7.4-10.4); Platelet Count 265 thou/uL (130-400); RBC Distribution Width 14.2 % (11.5-14.5); White Blood Cell (WBC) Count 9.1 thou/uL (4.8-10.8)
[2019-11-27 05:50] LABS: Magnesium 1.5 mg/dL (1.6-2.6); Phosphorus 4.3 mg/dL (2.3-4.7)
[2019-11-27] MEDS ORDERED: Levothyroxine Sodium 125 MCG TAB PO SCH (06:00)
[2019-11-27] MEDS: Acetaminophen 500 MG TAB PO SCH ×2 (06:05→11:42)
[2019-11-27] MEDS: traMADol HCl 50 MG TAB PO SCH ×2 (06:05→11:43)
[2019-11-27] MEDS: Insulin Regular 300 UNITS/3 ML VIAL SC PRN ×3 (06:06→16:08)
[2019-11-27] MEDS: Cyclobenzaprine 10 MG TAB PO PRN (06:51)
[2019-11-27] MEDS ORDERED: METHOCARBAMOL 750 MG PO PRN (08:42)
[2019-11-27] MEDS ORDERED: Atorvastatin Calcium 10 MG TAB PO SCH (09:00)
[2019-11-27] MEDS ORDERED: Hydrochlorothiazide 25 MG TAB PO SCH (09:00)
[2019-11-27] MEDS ORDERED: Cholecalciferol 1,000 UNITS (25 MCG) TAB PO SCH (09:00)
[2019-11-27] MEDS ORDERED: FLU VACC QS2020-21(65YR UP)/PF 240 MCG/0.7 ML SYRINGE IM ONE (09:00)
[2019-11-27] MEDS ORDERED: ASPIRIN 325 MG PO SCH (09:00)
[2019-11-27] MEDS ORDERED: Hydrocortisone 10 mg Tablet PO SCH ×4 (09:00→18:00)
[2019-11-27] MEDS ORDERED: Ergocalciferol 1.25 MG(50,000 UNITS) CAP PO SCH (09:00)
[2019-11-27] MEDS ORDERED: Polyethylene Glycol 3350 17 GM Packet PO SCH (09:00)
[2019-11-27] MEDS ORDERED: Aspirin 325 MG TAB PO SCH (09:00)
[2019-11-27] MEDS ORDERED: Methocarbamol 500 MG TAB PO PRN (09:14)
--- NOTE | 2019-11-27 10:03 | CON ---
DATE OF CONSULTATION: DICTATED FOR: Dez Shell MD HISTORY OF PRESENT ILLNESS: We were asked by Trauma in the ER to see the patient. The patient was packing up. She lives with her sister currently and her family is packing her up to move to a skilled facility in [place]. I believe it is the [facility]. She was getting up in a truck. Her right knee buckled, felt an instant pain, fell to the ground and the leg went below her. She was seen in the ER of [facility] and told she had a femur and a tibial plateau fracture, but viewing current imaging studies, there was a small osteophyte fracture on the tibial plateau. We did not see anything in the femur. She does have a fair amount of arthritis in her knee and she is to see Dr. Horn who unfortunately told her any surgical procedure she would need to lose a fair amount of weight. PAST MEDICAL HISTORY: Positive for: 1. Diabetes. 2. Pituitary disorder. 3. IBS. 4. Obesity. 5. Hyperlipidemia. 6. Hypertension. 7. Asthma. 8. Hypothyroid. PAST SURGICAL HISTORY: 1. Pituitary. 2. Cholecystectomy. 3. Cataract. 4. Lap band. SOCIAL HISTORY: Lives with her sister, was currently getting ready to move into a skilled facility. No alcohol, nicotine, or drug products. 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 MEDICATIONS: 1. Cortef. 2. Levothyroxine. 3. Insulin. 4. Hydrochlorothiazide. 5. Vitamin B. 6. Vitamin B12. 7. Vitamin D. 8. Lisinopril. 9. Albuterol. 10. Amlodipine. 11. Atorvastatin. ALLERGIES: IODINE TOPICAL AND CONTRAST, ATIVAN, GUAIFENESIN, VIBRAMYCIN, AND DEMEROL. FAMILY HISTORY: For this particular incident is noncontributory. REVIEW OF SYSTEMS: For orthopedic versus right leg pain, which has improved since yesterday. PHYSICAL EXAMINATION: GENERAL: Well-nourished, well-developed, obese female, resting in bed in room 3334, in no acute distress. Speech clear. Affect pleasant. Answer questions appropriately. She is alert and oriented x3. HEENT: Scalp atraumatic. Face symmetric. Tongue midline. NECK: Supple. Trachea midline. EXTREMITIES: Upper extremities; equal size, shape, and symmetry. Normal bulk and tone. Lower extremities; a little bit of swelling to the right knee. Otherwise, she is moving that right lower extremity well, especially in the feet and digits. Sensations intact. She has some palpable tenderness to the knee. ASSESSMENT: 1. Fall with right knee pain. 2. Questionable osteophyte fracture per x-rays. PLAN: No surgical intervention. We will get PT to work with the patient to see what she can tolerate. She may need to be on a walker depending on her pain control. I think once she is able to move, she can go to the [facility] in [place], her skilled facility, and get physical therapy and occupational therapy there if they have it. If not, probably some home health home PT/OT. She is happy with that plan. Job ID: [id number] [facility]
[2019-11-27 12:33] LABS: SARS-CoV-2 MS2 Positive; SARS-CoV-2 N Gene Negative; SARS-CoV-2 S Gene Negative; SARS-CoV-2 by NAA Not Detected (NotDetected); SARS-CoV-2 orf1ab Negative
[2019-11-27 16:12] VITALS: BP 150/80; TEMP 98.2
[2019-11-27] MEDS ORDERED: Allopurinol 100 MG TAB PO SCH (21:00)
[2019-11-27] MEDS ORDERED: Lisinopril 20 MG TAB PO SCH (21:00)
[2019-11-27] MEDS ORDERED: Amlodipine 5 MG TAB PO SCH (21:00)
--- NOTE | 2019-11-29 18:36 | DIS ---
DATE OF ADMISSION: 11/26/2019 DATE OF DISCHARGE: 11/27/2019 ADMISSION DIAGNOSIS: Mechanical fall from standing and left tibial plateau fracture. DISCHARGE DIAGNOSIS: Mechanical fall from standing and left tibial plateau fracture. CONSULTING PHYSICIAN: Dr. Shell of Orthopedic Surgery. PROCEDURES: None. HOSPITAL COURSE: The patient is a 69-year-old female who presented to the emergency department via EMS from a different emergency department after a mechanical fall. She was found to have a right tibial plateau fracture. She was evaluated by Orthopedic Surgery, and nonoperative management was recommended. It was attempted to place the patient in acute rehab facility directly from the emergency department, but a bed for a female patient was not available. She was subsequently admitted to the hospital for observation until a bed was available. The patient worked with Physical and Occupational Therapy and ultimately, was discharged to acute rehab facility. DISCHARGE DISPOSITION: Acute rehab facility, [facility]. DISCHARGE CONDITION: Satisfactory. PHYSICAL EXAMINATION: VITAL SIGNS: Temperature 98, pulse 74, respirations 18, oxygen saturation 96% on room air, and blood pressure 149/77. GENERAL: Well-appearing elderly female, sitting up in bed with no signs of acute distress. PULMONARY: Equal chest rise and fall. No signs of acute respiratory distress. EXTREMITIES: 2+ pulses in all extremities. Gross motor and sensation intact. NEUROLOGIC: GCS is 15. DISCHARGE INSTRUCTIONS: The patient was discharged to acute rehab facility. Activity as tolerated. Weightbearing as tolerated. Diabetic diet. Physical and Occupational Therapy. She will also have incentive spirometry and a walker. DISCHARGE MEDICATIONS: Include: 1. Tylenol. 2. Tylenol 3. 3. Allopurinol. 4. Amlodipine. 5. Aspirin. 6. Atorvastatin. 7. Flexeril. 8. Vitamin D2. 9. Hydrochlorothiazide. 10. Hydrocortisone. 11. Ibuprofen. 12. Vascepa. 13. Humulin R. 14. Levothyroxine. 15. Lisinopril. 16. Imodium. 17. Robaxin. 18. Nystatin. 19. Omeprazole. 20. Zofran. 21. MiraLAX. FOLLOWUP APPOINTMENTS: The patient is to follow up with Dr. Shell in clinic. No followup was needed with Trauma surgery Clinic. This is a summary of the patient's hospitalization. For full details, please see her medical record in its entirety. The patient was seen and evaluated by myself on the day of discharge. Job ID: [id number]
== END 2019-11-27 14:33 ==
LOC: ERS 16:15 → SURG A 22:46
PROVIDERS: ADMIT Specialist; ATTEND Specialist
DX: S82.144A Nondisplaced bicondylar fracture of right tibia, initial encounter for closed fracture (principal); M17.11 Unilateral primary osteoarthritis, right knee; E11.40 Type 2 diabetes mellitus with diabetic neuropathy, unspecified; I10 Essential (primary) hypertension; K21.9 Gastro-esophageal reflux disease without esophagitis; E03.9 Hypothyroidism, unspecified; E53.8 Deficiency of other specified B group vitamins; M10.9 Gout, unspecified; M19.90 Unspecified osteoarthritis, unspecified site; K58.9 Irritable bowel syndrome, unspecified; E23.0 Hypopituitarism; E78.5 Hyperlipidemia, unspecified; J45.909 Unspecified asthma, uncomplicated; F32.9 Major depressive disorder, single episode, unspecified; E66.9 Obesity, unspecified; Z68.43 Body mass index [BMI] 50.0-59.9, adult; Z79.4 Long term (current) use of insulin; Z79.82 Long term (current) use of aspirin; Z79.899 Other long term (current) drug therapy; Z88.1 Allergy status to other antibiotic agents; Z88.5 Allergy status to narcotic agent; Z88.8 Allergy status to other drugs, medicaments and biological substances; Z91.041 Radiographic dye allergy status; Z20.828 Contact with and (suspected) exposure to other viral communicable diseases; W18.30XA Fall on same level, unspecified, initial encounter
CPT/HCPCS: 80048; 82962; 83735; 84100; 85027; 97116; 97139 ×3; 99284; U0003; 36415; 36416; 87635; G0378; J1815

== ENCOUNTER 2021-01-02 09:45 | Inpatient (IN) | payer MEDICARE ==
[2021-01-02 11:00] LABS: #Basophils 0.1 thou/uL (0.0-0.2); #Eosinphils 0.2 thou/uL (0.0-0.7); #Lymphocytes 2.9 thou/uL (1.20-3.40); #Monocytes 1.1 thou/uL (0.11-0.59); #Neutrophils 14.9 thou/uL (1.40-6.50); %Basophils 0.3 % (0.0-1.0); %Lymphocytes 14.9 % (21.0-51.0); %Monocytes 5.7 % (0.0-10.0); Mean Corpuscular Hemoglobin 28.2 pg (27.0-31.0); Mean Corpuscular Volume 90.9 fL (78.0-98.0); Mean Platelet Volume 8.7 fL (7.4-10.4); Platelet Count 319 thou/uL (130-400); RBC Distribution Width 14.8 % (11.5-14.5); Red Blood Cell (RBC) Count 4.95 mill/uL (4.20-5.40); White Blood Cell (WBC) Count 19.1 thou/uL (4.8-10.8)
[2021-01-02] MEDS ORDERED: Acetaminophen 500 MG TAB ONE (11:17)
[2021-01-02 11:30] LABS: ALT (SGPT) 10 U/L (8-55); AST (SGOT) 9 U/L (5-34); Albumin 3.4 g/dL (3.4-4.8); Alkaline Phosphatase 62 U/L (40-110); Anion Gap 17 mmol/L (10-20); BUN (Urea Nitrogen) 32 mg/dL (9.8-20.1); Bilirubin, Total 1.5 mg/dL (0.2-1.2); Calc. Creatinine Clearance 0 mL/min (70-130); Carbon Dioxide 25 mmol/L (23-31); Chloride 91 mmol/L (98-107); Globulin 2.4 g/dL (2.4-3.5); Glucose 525 mg/dL (80-115); Potassium 3.7 mmol/L (3.5-5.1); Protein, Total 5.8 g/dL (5.8-8.1); Sodium 129 mmol/L (136-145)
[2021-01-02 12:39] LABS: Bilirubin Negative (Negative); Blood, Urine Negative (Negative); Clarity Turbid (Clear); Glucose, Urine (Dipstick) Greater than 1000 mg/dL (Negative); Ketone, Urine Trace mg/dL (Negative); Leukocyte Negative Leu/uL (Negative); Nitrite Negative (Negative); Protein, Urine (Dipstick) 20 mg/dL (Neg-Trace); Specific Gravity, Urine 1.026 (1.002-1.036)
[2021-01-02] MEDS ORDERED: Cefepime 2 GM VIAL ONE (13:39)
[2021-01-02] MEDS ORDERED: Dextrose 5% in Water 1,000 ML IV PRN (14:59)
[2021-01-02] MEDS ORDERED: Dextrose 50% Abboject 50 ML SYRINGE SLOW IVP PRN (14:59)
[2021-01-02] MEDS ORDERED: Electrolyte Replacement Protocol FS PRN (15:15)
[2021-01-02] MEDS ORDERED: Electrolyte Replacement Protocol 1 EACH FS SCH ×2 (15:15→16:00)
[2021-01-02] MEDS ORDERED: Ipratropium Oral Inhaler INH PRN (15:53)
[2021-01-02] MEDS ORDERED: Sodium Chloride 0.9% 1,000 ML IV SCH (16:00)
[2021-01-02] MEDS: HumaLOG 300 UNITS/3 ML VIAL SC PRN ×2 (17:55→21:51)
[2021-01-02] MEDS: Hydrocortisone 10 mg Tablet PO SCH (17:55)
[2021-01-02 18:17] LABS: Magnesium 1.4 mg/dL (1.6-2.6)
[2021-01-02] MEDS: Nystatin Powder 15 GM BOT TOP SCH (21:45)
[2021-01-02] MEDS: Acetaminophen/Codeine 30-300mg Tablet PO SCH (21:51)
[2021-01-02] MEDS ORDERED: Magnesium Sulfate 4 GM in Sodium Chloride 0.9% 250 ML 250 ML IVPB SCH (22:00)
[2021-01-03] MEDS: Cefepime 2 GM in Sodium Chloride 0.9% 100 ML IVPB SCH ×3 (01:49→22:53)
[2021-01-03 04:09] LABS: Anion Gap 18 mmol/L (10-20); BUN (Urea Nitrogen) 39 mg/dL (9.8-20.1); Calc. Creatinine Clearance 56 mL/min (70-130); Calcium 8.5 mg/dL (7.8-10.44); Carbon Dioxide 19 mmol/L (23-31); Chloride 97 mmol/L (98-107); Cholesterol 105 mg/dl (< 200 Desired); Glucose 331 mg/dL (80-115); HDL Cholesterol 26 mg/dL (>60 Neg Risk); LDL Cholesterol, Calculated 8 mg/dL; Potassium 3.7 mmol/L (3.5-5.1); Sodium 130 mmol/L (136-145); Triglycerides 357 mg/dL (Less than 150)
[2021-01-03] MEDS: Acetaminophen 325 MG TAB PO PRN ×3 (04:11→20:35)
[2021-01-03 04:56] LABS: Band 8 % (5-11); Hemoglobin 13.5 g/dL (12.0-16.0); Lymphocytes 22 % (21-51); MDiff Complete? YES; Mean Corpuscular HGB CONC 32.8 g/dL (32.0-36.0); Mean Corpuscular Hemoglobin 29.7 pg (27.0-31.0); Mean Corpuscular Volume 90.4 fL (78.0-98.0); Mean Platelet Volume 8.8 fL (7.4-10.4); Monocytes 5 % (0-10); Neutrophil 64 % (42-75); Platelet Count 283 thou/uL (130-400); Platelet Morphology Comment Appears Adequate; RBC Distribution Width 14.7 % (11.5-14.5); RBC Morphology Normal; Reactive Lymphocytes 1 % (0-10); Red Blood Cell (RBC) Count 4.54 mill/uL (4.20-5.40)
[2021-01-03 04:58] LABS: Bilirubin Negative (Negative); Blood, Urine Negative (Negative); Clarity Turbid (Clear); Glucose, Urine (Dipstick) 300 mg/dL (Negative); Ketone, Urine 10 mg/dL (Negative); Leukocyte 250 Leu/uL (Negative); Nitrite Negative (Negative); Protein, Urine (Dipstick) 70 mg/dL (Neg-Trace); RBC/HPF 0-3 HPF (0-3); Specific Gravity, Urine 1.027 (1.002-1.036); Squamous Epithelial 0-3 HPF (0-3)
[2021-01-03 05:04] LABS: Bacteria/HPF 1+ HPF (None Seen)
[2021-01-03 05:05] LABS: Urine Culture Reflex Yes Yes
[2021-01-03] MEDS ORDERED: Sodium Chloride 0.9% 1,000 ML IV SCH ×2 (09:00→11:00)
[2021-01-03] MEDS: Hydrocortisone 10 mg Tablet PO SCH (09:47)
[2021-01-03] MEDS: Nystatin Powder 15 GM BOT TOP SCH ×2 (09:48→20:34)
[2021-01-03 10:09] LABS: Actual Bicarbonate (HCO3a) 23.1 mEq/L (22-28); Calcium, Ionized (arterial) 1.06 mmol/L (1.12-1.30); Hemoglobin (Hb) 12.3 g/dL (12.0-16.0); pH, Arterial 7.37 (7.35-7.45)
[2021-01-03] MEDS: Acetaminophen/Codeine 30-300mg Tablet PO SCH ×2 (10:48→20:34)
[2021-01-03 14:20] LABS: SARS-CoV-2 PCR by NAA Not Detected (NotDetected)
[2021-01-03] MEDS: Sodium Chloride 0.9% 1,000 ML IV SCH ×2 (15:40→20:35)
[2021-01-03] MEDS ORDERED: Hydrocortisone Sod Succ/PF 100 mg/2 ml Vial IVP SCH (16:00)
[2021-01-03] MEDS: HumaLOG 300 UNITS/3 ML VIAL SC PRN ×2 (17:23→21:39)
[2021-01-03] MEDS ORDERED: Hydrocortisone Sod Succ/PF 100 mg/2 ml Vial ONE (20:08)
[2021-01-03] MEDS ORDERED: Cefepime 2 GM VIAL ONE (20:09)
[2021-01-03] MEDS ORDERED: Acetaminophen 325 MG TAB ONE (20:09)
[2021-01-03 21:26] LABS: Lactic Acid 1.4 mmol/L (0.5-2.2)
[2021-01-03] MEDS: Hydrocortisone Sod Succ/PF 100 mg/2 ml Vial IVP SCH (22:53)
[2021-01-04] MEDS: Acetaminophen 325 MG TAB PO PRN (02:41)
[2021-01-04] MEDS: Hydrocortisone Sod Succ/PF 100 mg/2 ml Vial IVP SCH ×4 (03:52→22:15)
[2021-01-04 03:56] LABS: #Basophils 0.1 thou/uL (0.0-0.2); #Lymphocytes 0.8 thou/uL (1.20-3.40); #Monocytes 0.8 thou/uL (0.11-0.59); #Neutrophils 11.9 thou/uL (1.40-6.50); %Basophils 0.4 % (0.0-1.0); %Eosinophils 0.3 % (0.0-10.0); %Monocytes 5.8 % (0.0-10.0); %Neutrophils 87.5 % (42.0-75.0); Hemoglobin 13.5 g/dL (12.0-16.0); Mean Corpuscular HGB CONC 33.9 g/dL (32.0-36.0); Mean Corpuscular Hemoglobin 30.7 pg (27.0-31.0); Mean Corpuscular Volume 90.5 fL (78.0-98.0); Mean Platelet Volume 9.2 fL (7.4-10.4); Platelet Count 195 thou/uL (130-400); RBC Distribution Width 14.4 % (11.5-14.5); White Blood Cell (WBC) Count 13.6 thou/uL (4.8-10.8)
[2021-01-04 04:25] LABS: Anion Gap 16 mmol/L (10-20); BUN (Urea Nitrogen) 39 mg/dL (9.8-20.1); Calc. Creatinine Clearance 54 mL/min (70-130); Calcium 8.5 mg/dL (7.8-10.44); Carbon Dioxide 19 mmol/L (23-31); Chloride 100 mmol/L (98-107); Glucose 302 mg/dL (80-115); Magnesium 2.2 mg/dL (1.6-2.6); Potassium 3.8 mmol/L (3.5-5.1); Sodium 131 mmol/L (136-145)
[2021-01-04] MEDS: Levothyroxine Sodium 125 MCG TAB PO SCH (05:22)
[2021-01-04] MEDS: HumaLOG 300 UNITS/3 ML VIAL SC PRN ×4 (05:39→20:16)
[2021-01-04] MEDS: Acetaminophen/Codeine 30-300mg Tablet PO SCH ×2 (08:50→20:15)
[2021-01-04] MEDS: Aspirin 325 MG TAB PO SCH (08:51)
[2021-01-04] MEDS: Nystatin Powder 15 GM BOT TOP SCH ×2 (08:52→20:16)
[2021-01-04] MEDS: Sodium Chloride 0.9% 1,000 ML IV SCH ×3 (08:54→20:20)
[2021-01-04] MEDS ORDERED: Pantoprazole 40 MG VIAL IVP SCH (09:00)
[2021-01-04] MEDS ORDERED: Lantus 1000 UNITS/10 ML VIAL SC SCH (10:45)
[2021-01-04] MEDS: Cefepime 2 GM in Sodium Chloride 0.9% 100 ML IVPB SCH ×2 (12:08→22:34)
[2021-01-04] MEDS: traMADol HCl 50 MG TAB PO PRN (14:42)
[2021-01-04] MEDS: Lantus 1000 UNITS/10 ML VIAL SC SCH (20:14)
[2021-01-05] MEDS: Acetaminophen 325 MG TAB PO PRN (03:19)
[2021-01-05] MEDS: Hydrocortisone Sod Succ/PF 100 mg/2 ml Vial IVP SCH ×4 (03:19→17:00)
[2021-01-05] MEDS: traMADol HCl 50 MG TAB PO PRN (03:20)
[2021-01-05 03:59] LABS: Anion Gap 16 mmol/L (10-20); BUN (Urea Nitrogen) 32 mg/dL (9.8-20.1); Calc. Creatinine Clearance 96 mL/min (70-130); Calcium 8.5 mg/dL (7.8-10.44); Carbon Dioxide 17 mmol/L (23-31); Chloride 103 mmol/L (98-107); Glucose 298 mg/dL (80-115); Potassium 4.7 mmol/L (3.5-5.1); Sodium 131 mmol/L (136-145)
[2021-01-05 04:20] LABS: #Eosinphils 0.1 thou/uL (0.0-0.7); #Monocytes 0.7 thou/uL (0.11-0.59); #Neutrophils 9.7 thou/uL (1.40-6.50); %Eosinophils 0.5 % (0.0-10.0); %Lymphocytes 8.5 % (21.0-51.0); %Monocytes 6.2 % (0.0-10.0); %Neutrophils 84.9 % (42.0-75.0); Hemoglobin 12.6 g/dL (12.0-16.0); Mean Corpuscular HGB CONC 33.1 g/dL (32.0-36.0); Mean Corpuscular Hemoglobin 30.6 pg (27.0-31.0); Mean Corpuscular Volume 92.6 fL (78.0-98.0); Mean Platelet Volume 9.4 fL (7.4-10.4); Platelet Count 80 thou/uL (130-400); Platelet Morphology Comment Appears Decreased; RBC Distribution Width 14.4 % (11.5-14.5); Red Blood Cell (RBC) Count 4.12 mill/uL (4.20-5.40); White Blood Cell (WBC) Count 11.5 thou/uL (4.8-10.8)
[2021-01-05] MEDS: Levothyroxine Sodium 125 MCG TAB PO SCH (05:05)
[2021-01-05] MEDS: HumaLOG 300 UNITS/3 ML VIAL SC PRN ×4 (05:45→21:47)
[2021-01-05] MEDS: Aspirin 325 MG TAB PO SCH (08:55)
[2021-01-05] MEDS: Pantoprazole 40 MG GRANULES PACKET PER TUBE SCH (08:55)
[2021-01-05] MEDS: Acetaminophen/Codeine 30-300mg Tablet PO SCH ×2 (08:56→21:44)
[2021-01-05] MEDS: Nystatin Powder 15 GM BOT TOP SCH ×2 (08:56→21:46)
[2021-01-05] MEDS: Lantus 1000 UNITS/10 ML VIAL SC SCH ×2 (08:57→21:47)
[2021-01-05] MEDS: Hydrocortisone 10 mg Tablet PO SCH (09:07)
[2021-01-05] MEDS: Cefepime 2 GM in Sodium Chloride 0.9% 100 ML IVPB SCH (10:55)
[2021-01-05] MEDS: Sodium Chloride 0.9% 1,000 ML IV SCH (12:15)
[2021-01-06] MEDS: Hydrocortisone Sod Succ/PF 100 mg/2 ml Vial IVP SCH ×3 (01:54→16:36)
[2021-01-06] MEDS: traMADol HCl 50 MG TAB PO PRN ×2 (01:57→14:39)
[2021-01-06] MEDS: Sodium Chloride 0.9% 1,000 ML IV SCH ×3 (02:45→17:55)
[2021-01-06 03:36] LABS: #Lymphocytes 0.9 thou/uL (1.20-3.40); #Monocytes 0.8 thou/uL (0.11-0.59); #Neutrophils 8.6 thou/uL (1.40-6.50); %Basophils 0.1 % (0.0-1.0); %Eosinophils 0.3 % (0.0-10.0); %Lymphocytes 9.1 % (21.0-51.0); %Monocytes 7.7 % (0.0-10.0); %Neutrophils 82.9 % (42.0-75.0); Hemoglobin 12.4 g/dL (12.0-16.0); Mean Corpuscular HGB CONC 33.7 g/dL (32.0-36.0); Mean Corpuscular Hemoglobin 30.6 pg (27.0-31.0); Mean Corpuscular Volume 90.9 fL (78.0-98.0); Mean Platelet Volume 8.9 fL (7.4-10.4); Platelet Count 182 thou/uL (130-400); RBC Distribution Width 14.3 % (11.5-14.5); Red Blood Cell (RBC) Count 4.04 mill/uL (4.20-5.40); White Blood Cell (WBC) Count 10.4 thou/uL (4.8-10.8)
[2021-01-06 03:52] LABS: Anion Gap 13 mmol/L (10-20); BUN (Urea Nitrogen) 29 mg/dL (9.8-20.1); Calc. Creatinine Clearance 136 mL/min (70-130); Calcium 8.6 mg/dL (7.8-10.44); Carbon Dioxide 21 mmol/L (23-31); Chloride 104 mmol/L (98-107); Glucose 293 mg/dL (80-115); Potassium 3.6 mmol/L (3.5-5.1); Sodium 134 mmol/L (136-145)
[2021-01-06] MEDS: HumaLOG 300 UNITS/3 ML VIAL SC PRN ×4 (06:58→21:46)
[2021-01-06] MEDS: Levothyroxine Sodium 125 MCG TAB PO SCH (06:58)
[2021-01-06] MEDS: Aspirin 325 MG TAB PO SCH (08:05)
[2021-01-06] MEDS: Pantoprazole 40 MG GRANULES PACKET PER TUBE SCH (08:05)
[2021-01-06] MEDS: Lantus 1000 UNITS/10 ML VIAL SC SCH ×2 (08:05→21:13)
[2021-01-06] MEDS: Acetaminophen/Codeine 30-300mg Tablet PO SCH ×2 (08:06→21:13)
[2021-01-06] MEDS: Nystatin Powder 15 GM BOT TOP SCH ×2 (08:06→21:13)
[2021-01-07] MEDS: traMADol HCl 50 MG TAB PO PRN ×2 (01:54→16:36)
[2021-01-07] MEDS ORDERED: Hydrocortisone Sod Succ/PF 100 mg/2 ml Vial IVP SCH (05:00)
[2021-01-07] MEDS: HumaLOG 300 UNITS/3 ML VIAL SC PRN ×3 (05:39→20:29)
[2021-01-07] MEDS: Levothyroxine Sodium 125 MCG TAB PO SCH (05:54)
[2021-01-07 06:04] LABS: Anion Gap 12 mmol/L (10-20); BUN (Urea Nitrogen) 21 mg/dL (9.8-20.1); Calc. Creatinine Clearance 141 mL/min (70-130); Calcium 8.7 mg/dL (7.8-10.44); Carbon Dioxide 23 mmol/L (23-31); Chloride 104 mmol/L (98-107); Glucose 261 mg/dL (80-115); Potassium 3.2 mmol/L (3.5-5.1); Sodium 136 mmol/L (136-145)
[2021-01-07 06:19] VITALS: BMI 56.0
[2021-01-07] MEDS ORDERED: Potassium Chloride 20 MEQ TAB PO SCH ×2 (07:00→14:45)
[2021-01-07] MEDS: Aspirin 325 MG TAB PO SCH (08:29)
[2021-01-07] MEDS: Acetaminophen/Codeine 30-300mg Tablet PO SCH ×2 (08:30→20:26)
[2021-01-07] MEDS: Pantoprazole 40 MG GRANULES PACKET PER TUBE SCH (08:31)
[2021-01-07] MEDS: Lantus 1000 UNITS/10 ML VIAL SC SCH ×2 (08:31→20:28)
[2021-01-07] MEDS: Nystatin Powder 15 GM BOT TOP SCH ×2 (08:32→20:28)
[2021-01-07 12:32] LABS: Potassium 3.5 mmol/L (3.5-5.1)
[2021-01-07] MEDS: Hydrocortisone 10 mg Tablet PO SCH ×2 (12:36→18:27)
[2021-01-07] MEDS: Sodium Chloride 0.9% 1,000 ML IV SCH (20:29)
[2021-01-08] MEDS: HYDROcodone/Acetaminophen 5/325 mg Tablet PO PRN ×2 (01:51→11:45)
[2021-01-08] MEDS: Levothyroxine Sodium 125 MCG TAB PO SCH (05:46)
[2021-01-08] MEDS: HumaLOG 300 UNITS/3 ML VIAL SC PRN ×2 (06:00→12:47)
[2021-01-08] MEDS: Acetaminophen/Codeine 30-300mg Tablet PO SCH (08:45)
[2021-01-08] MEDS: Aspirin 325 MG TAB PO SCH (08:45)
[2021-01-08] MEDS: Pantoprazole 40 MG GRANULES PACKET PER TUBE SCH (08:45)
[2021-01-08] MEDS: Nystatin Powder 15 GM BOT TOP SCH (08:46)
[2021-01-08] MEDS: Hydrocortisone 10 mg Tablet PO SCH (08:47)
[2021-01-08] MEDS: Lantus 1000 UNITS/10 ML VIAL SC SCH (11:56)
[2021-01-08 12:38] VITALS: BP 135/81; TEMP 97.4
[2021-01-09 00:07] LABS: Norovirus GI Negative (Negative); Norovirus GII Negative (Negative)
== END 2021-01-08 15:45 | disposition swing bed (61) | DRG 871 ==
LOC: ERS 09:45 → T4-B 14:24 → OBSVTOIN 01-03 14:58 → IMCU/EMU 01-03 15:14 → T4-B 01-06 12:10
PROVIDERS: ADMIT Hospitalist; ATTEND Family Medicine
PROC: 5A09357 Assistance with Respiratory Ventilation, Less than 24 Consecutive Hours, Continuous Positive Airway Pressure (ICD-10-PCS; principal; 2021-01-03)
DX: A41.9 Sepsis, unspecified organism (principal); J96.01 Acute respiratory failure with hypoxia; Z68.43 Body mass index [BMI] 50.0-59.9, adult; E27.40 Unspecified adrenocortical insufficiency; N17.9 Acute kidney failure, unspecified; E66.2 Morbid (severe) obesity with alveolar hypoventilation; A09 Infectious gastroenteritis and colitis, unspecified; Z20.822 Contact with and (suspected) exposure to COVID-19; R65.20 Severe sepsis without septic shock; F32.A Depression, unspecified; I10 Essential (primary) hypertension; E11.65 Type 2 diabetes mellitus with hyperglycemia; E03.9 Hypothyroidism, unspecified; J45.909 Unspecified asthma, uncomplicated; M79.3 Panniculitis, unspecified; K58.0 Irritable bowel syndrome with diarrhea; E89.3 Postprocedural hypopituitarism; E86.9 Volume depletion, unspecified; E87.6 Hypokalemia; Z88.8 Allergy status to other drugs, medicaments and biological substances; Z88.1 Allergy status to other antibiotic agents; Z91.041 Radiographic dye allergy status; Z79.899 Other long term (current) drug therapy; Z79.82 Long term (current) use of aspirin; Z79.890 Hormone replacement therapy; Z80.0 Family history of malignant neoplasm of digestive organs; Z82.49 Family history of ischemic heart disease and other diseases of the circulatory system
CPT/HCPCS: 36415; 36416; 70450; 71045; 72125; 72128; 72131; 80048; 80053; 80061; 81003; 82010; 82805; 83036; 83605; 83630; 83735; 84145; 84443; 84484; 85025; 87040; 87045; 87046; 87086; 87427; 87449; 87798; 94660; C9113; J0692; J1720; J1815; J1956; J3475; J3490; J7050; U0003; U0005

== ENCOUNTER 2021-08-26 08:38 | Inpatient (IN) | payer MEDICARE ==
[2021-08-26 09:42] LABS: #Basophils 0.1 thou/uL (0.0-0.2); #Eosinphils 0.6 thou/uL (0.0-0.7); #Lymphocytes 2.3 thou/uL (1.20-3.40); #Monocytes 0.8 thou/uL (0.11-0.59); #Neutrophils 7.2 thou/uL (1.40-6.50); %Basophils 0.8 % (0.0-1.0); %Eosinophils 5.7 % (0.0-10.0); %Monocytes 7.5 % (0.0-10.0); Hemoglobin 12.9 g/dL (12.0-16.0); Mean Corpuscular HGB CONC 31.7 g/dL (32.0-36.0); Mean Corpuscular Hemoglobin 29.2 pg (27.0-31.0); Mean Corpuscular Volume 92.2 fL (78.0-98.0); Mean Platelet Volume 7.6 fL (7.4-10.4); Platelet Count 263 thou/uL (130-400); RBC Distribution Width 13.1 % (11.5-14.5)
[2021-08-26 10:02] LABS: ALT (SGPT) 22 U/L (8-55); AST (SGOT) 27 U/L (5-34); Albumin 3.6 g/dL (3.4-4.8); Alkaline Phosphatase 69 U/L (40-110); Anion Gap 16 mmol/L (10-20); BUN (Urea Nitrogen) 11 mg/dL (9.8-20.1); Bilirubin, Total 0.7 mg/dL (0.2-1.2); Calc. Creatinine Clearance 0 mL/min (70-130); Calcium 9.1 mg/dL (7.8-10.44); Carbon Dioxide 29 mmol/L (23-31); Chloride 97 mmol/L (98-107); Estimated GFR 86; Globulin 2.9 g/dL (2.4-3.5); Glucose 117 mg/dL (80-115); Potassium 3.5 mmol/L (3.5-5.1); Protein, Total 6.5 g/dL (5.8-8.1); Sodium 138 mmol/L (136-145)
[2021-08-26 10:13] LABS: SARS-CoV-2 NAA Rapid Test Not Detected (NotDetected)
[2021-08-26] MEDS ORDERED: Cefepime 2 GM VIAL ONE (10:31)
[2021-08-26] MEDS ORDERED: Senokot S 8.6-50 MG TAB PO PRN (11:34)
[2021-08-26] MEDS ORDERED: Ondansetron PF 4 MG/2 ML Vial IVP PRN (11:34)
[2021-08-26] MEDS ORDERED: Acetaminophen 325 MG TAB PO PRN (11:34)
[2021-08-26] MEDS ORDERED: Ondansetron ODT 4 MG TAB PO PRN (11:34)
[2021-08-26] MEDS ORDERED: Dextrose 5% in Water 1,000 ML IV PRN (11:39)
[2021-08-26] MEDS ORDERED: Dextrose 50% Abboject 50 ML SYRINGE SLOW IVP PRN (11:39)
[2021-08-26 12:23] LABS: Lactic Acid 2.6 mmol/L (0.5-2.2)
[2021-08-26 12:27] LABS: Bacteria/HPF 2+ HPF (None Seen); Bilirubin Negative (Negative); Blood, Urine Negative (Negative); Clarity Turbid (Clear); Glucose, Urine (Dipstick) Normal (Negative); Ketone, Urine Negative (Negative); Leukocyte 500 Leu/uL (Negative); Nitrite Negative (Negative); Protein, Urine (Dipstick) 20 mg/dL (Neg-Trace); RBC/HPF 0-3 HPF (0-3); Specific Gravity, Urine 1.022 (1.002-1.036); Squamous Epithelial 0-3 HPF (0-3); WBC/HPF Greater than 50 HPF (0-3)
[2021-08-26] MEDS ORDERED: methylPREDNISolone Sod Succ/PF 125 MG/2 ML VIAL ONE (13:03)
[2021-08-26] MEDS ORDERED: Clindamycin/D5W 900 mg/50 ml Premix Bag ONE (13:03)
[2021-08-26 14:51] VITALS: BMI 64.0
[2021-08-26] MEDS: HumaLOG 300 UNITS/3 ML VIAL SC PRN (16:16)
[2021-08-26] MEDS: Cefepime 2 GM in Sodium Chloride 0.9% 100 ML IVPB SCH (20:52)
[2021-08-26] MEDS: Lisinopril 20 MG TAB PO SCH (21:07)
[2021-08-26] MEDS: Famotidine 20 MG TAB PO SCH (21:07)
[2021-08-27] MEDS: Levothyroxine Sodium 125 MCG TAB PO SCH (05:31)
[2021-08-27 05:56] LABS: #Lymphocytes 1.5 thou/uL (1.20-3.40); #Monocytes 0.2 thou/uL (0.11-0.59); #Neutrophils 13.5 thou/uL (1.40-6.50); %Basophils 0.1 % (0.0-1.0); %Eosinophils 0.3 % (0.0-10.0); %Lymphocytes 9.8 % (21.0-51.0); %Monocytes 1.3 % (0.0-10.0); %Neutrophils 88.5 % (42.0-75.0); Hemoglobin 13.2 g/dL (12.0-16.0); Mean Corpuscular HGB CONC 31.8 g/dL (32.0-36.0); Mean Corpuscular Hemoglobin 29.3 pg (27.0-31.0); Mean Platelet Volume 7.7 fL (7.4-10.4); Platelet Count 278 thou/uL (130-400); Red Blood Cell (RBC) Count 4.51 mill/uL (4.20-5.40); White Blood Cell (WBC) Count 15.3 thou/uL (4.8-10.8)
[2021-08-27 06:18] LABS: Anion Gap 18 mmol/L (10-20); BUN (Urea Nitrogen) 17 mg/dL (9.8-20.1); Calc. Creatinine Clearance 162 mL/min (70-130); Calcium 9.2 mg/dL (7.8-10.44); Carbon Dioxide 24 mmol/L (23-31); Chloride 97 mmol/L (98-107); Estimated GFR 77; Glucose 320 mg/dL (80-115); Potassium 3.9 mmol/L (3.5-5.1); Sodium 135 mmol/L (136-145)
[2021-08-27] MEDS: HumaLOG 300 UNITS/3 ML VIAL SC PRN ×4 (06:37→23:35)
[2021-08-27] MEDS: Enoxaparin Sodium 40 MG/0.4 ML SYRINGE SC SCH (08:56)
[2021-08-27] MEDS: Insulin Glargine 30 UNITS/0.3 ML VIAL SC SCH (08:56)
[2021-08-27] MEDS: Famotidine 20 MG TAB PO SCH ×2 (08:57→20:37)
[2021-08-27] MEDS: Cefepime 2 GM in Sodium Chloride 0.9% 100 ML IVPB SCH ×2 (08:57→20:38)
[2021-08-27] MEDS: Acetaminophen/Codeine 30-300mg Tablet PO SCH ×3 (12:19→23:25)
[2021-08-27] MEDS: Methocarbamol 500 MG TAB PO SCH ×3 (12:20→23:24)
[2021-08-27] MEDS: Lisinopril 20 MG TAB PO SCH (20:37)
[2021-08-28 05:59] LABS: #Eosinphils 0.1 thou/uL (0.0-0.7); #Lymphocytes 2.4 thou/uL (1.20-3.40); #Monocytes 0.9 thou/uL (0.11-0.59); #Neutrophils 8.7 thou/uL (1.40-6.50); %Basophils 0.4 % (0.0-1.0); %Eosinophils 0.7 % (0.0-10.0); %Lymphocytes 19.7 % (21.0-51.0); %Monocytes 7.6 % (0.0-10.0); %Neutrophils 71.6 % (42.0-75.0); Hemoglobin 12.9 g/dL (12.0-16.0); Mean Corpuscular HGB CONC 31.4 g/dL (32.0-36.0); Mean Corpuscular Hemoglobin 29.1 pg (27.0-31.0); Mean Corpuscular Volume 92.6 fL (78.0-98.0); Mean Platelet Volume 7.6 fL (7.4-10.4); Platelet Count 299 thou/uL (130-400); RBC Distribution Width 13.1 % (11.5-14.5); Red Blood Cell (RBC) Count 4.43 mill/uL (4.20-5.40); White Blood Cell (WBC) Count 12.2 thou/uL (4.8-10.8)
[2021-08-28] MEDS: Acetaminophen/Codeine 30-300mg Tablet PO SCH ×3 (06:13→17:47)
[2021-08-28] MEDS: Methocarbamol 500 MG TAB PO SCH ×3 (06:13→17:46)
[2021-08-28] MEDS: Levothyroxine Sodium 125 MCG TAB PO SCH (06:15)
[2021-08-28] MEDS: HumaLOG 300 UNITS/3 ML VIAL SC PRN ×3 (06:16→17:47)
[2021-08-28 06:21] LABS: ALT (SGPT) 18 U/L (8-55); AST (SGOT) 20 U/L (5-34); Albumin 3.6 g/dL (3.4-4.8); Alkaline Phosphatase 62 U/L (40-110); Anion Gap 14 mmol/L (10-20); BUN (Urea Nitrogen) 14 mg/dL (9.8-20.1); Bilirubin, Total 0.4 mg/dL (0.2-1.2); Calc. Creatinine Clearance 171 mL/min (70-130); Calcium 9.4 mg/dL (7.8-10.44); Carbon Dioxide 27 mmol/L (23-31); Chloride 101 mmol/L (98-107); Estimated GFR 82; Glucose 279 mg/dL (80-115); Potassium 3.4 mmol/L (3.5-5.1); Protein, Total 6.6 g/dL (5.8-8.1); Sodium 139 mmol/L (136-145)
[2021-08-28] MEDS: Famotidine 20 MG TAB PO SCH ×2 (08:47→20:50)
[2021-08-28] MEDS: Insulin Glargine 30 UNITS/0.3 ML VIAL SC SCH (08:47)
[2021-08-28] MEDS: Cefepime 2 GM in Sodium Chloride 0.9% 100 ML IVPB SCH ×2 (08:48→20:50)
[2021-08-28] MEDS: Enoxaparin Sodium 40 MG/0.4 ML SYRINGE SC SCH (08:49)
[2021-08-28] MEDS ORDERED: predniSONE 20 MG TAB PO SCH (16:00)
[2021-08-28] MEDS ORDERED: Docusate 100 MG CAP PO PRN (20:31)
[2021-08-28] MEDS ORDERED: Bisacodyl 5 MG TAB PO PRN (20:31)
[2021-08-28] MEDS ORDERED: Potassium Chloride 20 MEQ TAB PO SCH (20:45)
[2021-08-28] MEDS: DULoxetine 60 MG CAP PO SCH (20:49)
[2021-08-28] MEDS: Atorvastatin Calcium 10 MG TAB PO SCH (20:50)
[2021-08-28] MEDS: Lisinopril 20 MG TAB PO SCH (20:50)
[2021-08-28] MEDS ORDERED: Insulin Glargine 30 UNITS/0.3 ML VIAL SC SCH (21:00)
[2021-08-29] MEDS: Acetaminophen/Codeine 30-300mg Tablet PO SCH ×4 (00:46→18:22)
[2021-08-29] MEDS: Methocarbamol 500 MG TAB PO SCH ×4 (00:47→18:21)
[2021-08-29] MEDS: Levothyroxine Sodium 125 MCG TAB PO SCH (05:43)
[2021-08-29] MEDS: HumaLOG 300 UNITS/3 ML VIAL SC PRN ×4 (05:48→20:47)
[2021-08-29 05:53] LABS: #Lymphocytes 1.8 thou/uL (1.20-3.40); #Monocytes 0.7 thou/uL (0.11-0.59); #Neutrophils 8.7 thou/uL (1.40-6.50); %Basophils 0.3 % (0.0-1.0); %Eosinophils 0.3 % (0.0-10.0); %Monocytes 6.5 % (0.0-10.0); %Neutrophils 76.9 % (42.0-75.0); Hemoglobin 13.4 g/dL (12.0-16.0); Mean Corpuscular HGB CONC 31.5 g/dL (32.0-36.0); Mean Corpuscular Hemoglobin 29.1 pg (27.0-31.0); Mean Corpuscular Volume 92.1 fL (78.0-98.0); Mean Platelet Volume 7.6 fL (7.4-10.4); Platelet Count 312 thou/uL (130-400); RBC Distribution Width 13.2 % (11.5-14.5); Red Blood Cell (RBC) Count 4.62 mill/uL (4.20-5.40); White Blood Cell (WBC) Count 11.3 thou/uL (4.8-10.8)
[2021-08-29 06:25] LABS: ALT (SGPT) 19 U/L (8-55); AST (SGOT) 20 U/L (5-34); Albumin 3.8 g/dL (3.4-4.8); Alkaline Phosphatase 66 U/L (40-110); Anion Gap 16 mmol/L (10-20); BUN (Urea Nitrogen) 15 mg/dL (9.8-20.1); Bilirubin, Direct 0.1 mg/dL (0.1-0.3); Bilirubin, Total 0.3 mg/dL (0.2-1.2); CRP (Inflammatory) 1.16 mg/dL (= or < 0.5); Calc. Creatinine Clearance 153 mL/min (70-130); Calcium 9.7 mg/dL (7.8-10.44); Carbon Dioxide 28 mmol/L (23-31); Chloride 99 mmol/L (98-107); Cholesterol 129 mg/dl (< 200 Desired); Estimated GFR 72; Glucose 359 mg/dL (80-115); HDL Cholesterol 43 mg/dL (>60 Neg Risk); LDL Cholesterol, Calculated 51 mg/dL; Magnesium 1.7 mg/dL (1.6-2.6); Potassium 4.6 mmol/L (3.5-5.1); Protein, Total 7.1 g/dL (5.8-8.1); Sodium 138 mmol/L (136-145); Triglycerides 175 mg/dL (Less than 150)
[2021-08-29] MEDS ORDERED: predniSONE 20 MG TAB PO SCH (08:00)
[2021-08-29] MEDS: Cefepime 2 GM in Sodium Chloride 0.9% 100 ML IVPB SCH ×2 (09:19→20:37)
[2021-08-29] MEDS: Aspirin 325 MG TAB PO SCH (09:20)
[2021-08-29] MEDS: Enoxaparin Sodium 40 MG/0.4 ML SYRINGE SC SCH (09:20)
[2021-08-29] MEDS: Insulin Glargine 30 UNITS/0.3 ML VIAL SC SCH ×2 (09:20→20:46)
[2021-08-29] MEDS: Hydrocortisone 10 mg Tablet PO SCH ×2 (09:20→20:36)
[2021-08-29] MEDS: Famotidine 20 MG TAB PO SCH (09:21)
[2021-08-29] MEDS: Loratadine 10 MG TAB PO SCH (09:21)
[2021-08-29] MEDS ORDERED: Bisacodyl 5 MG TAB PO PRN (13:32)
[2021-08-29] MEDS ORDERED: methylPREDNISolone Sod Succ/PF 125 MG/2 ML VIAL IVP SCH (18:00)
[2021-08-29] MEDS: DULoxetine 60 MG CAP PO SCH (20:36)
[2021-08-29] MEDS: Amlodipine 10 MG TAB PO SCH (20:36)
[2021-08-29] MEDS: Lisinopril 20 MG TAB PO SCH (20:36)
[2021-08-29] MEDS: Atorvastatin Calcium 10 MG TAB PO SCH (20:36)
[2021-08-29] MEDS: methylPREDNISolone Sod Succ/PF 125 MG/2 ML VIAL IVP SCH (20:37)
[2021-08-30] MEDS: Methocarbamol 500 MG TAB PO SCH ×4 (00:18→18:55)
[2021-08-30] MEDS: Acetaminophen/Codeine 30-300mg Tablet PO SCH ×4 (00:19→18:53)
[2021-08-30] MEDS: Levothyroxine Sodium 125 MCG TAB PO SCH (05:23)
[2021-08-30] MEDS: HumaLOG 300 UNITS/3 ML VIAL SC PRN ×4 (05:26→20:50)
[2021-08-30 06:08] LABS: #Lymphocytes 1.5 thou/uL (1.20-3.40); #Monocytes 0.4 thou/uL (0.11-0.59); #Neutrophils 9.1 thou/uL (1.40-6.50); %Eosinophils 0.2 % (0.0-10.0); %Lymphocytes 13.5 % (21.0-51.0); %Monocytes 3.3 % (0.0-10.0); Hemoglobin 12.7 g/dL (12.0-16.0); Mean Corpuscular HGB CONC 32.1 g/dL (32.0-36.0); Mean Corpuscular Hemoglobin 29.2 pg (27.0-31.0); Mean Platelet Volume 7.9 fL (7.4-10.4); Platelet Count 297 thou/uL (130-400); RBC Distribution Width 12.9 % (11.5-14.5); Red Blood Cell (RBC) Count 4.36 mill/uL (4.20-5.40)
[2021-08-30 06:25] LABS: Anion Gap 18 mmol/L (10-20); BUN (Urea Nitrogen) 17 mg/dL (9.8-20.1); Calc. Creatinine Clearance 166 mL/min (70-130); Calcium 9.5 mg/dL (7.8-10.44); Carbon Dioxide 26 mmol/L (23-31); Chloride 96 mmol/L (98-107); Estimated GFR 80; Glucose 407 mg/dL (80-115); Magnesium 1.7 mg/dL (1.6-2.6); Potassium 4.7 mmol/L (3.5-5.1); Sodium 135 mmol/L (136-145)
[2021-08-30] MEDS ORDERED: Dextrose 50% Abboject 50 ML SYRINGE SLOW IVP PRN (07:13)
[2021-08-30] MEDS ORDERED: Dextrose 5% in Water 1,000 ML IV PRN (07:13)
[2021-08-30] MEDS ORDERED: HumaLOG 300 UNITS/3 ML VIAL SC SCH ×3 (08:00→17:00)
[2021-08-30] MEDS: Mometasone/Formoterol 200/5 60 PUFF INH SCH ×2 (08:18→18:26)
[2021-08-30] MEDS: Insulin Glargine 30 UNITS/0.3 ML VIAL SC SCH ×2 (08:43→20:50)
[2021-08-30] MEDS: Loratadine 10 MG TAB PO SCH (08:45)
[2021-08-30] MEDS: Cefepime 2 GM in Sodium Chloride 0.9% 100 ML IVPB SCH ×2 (08:45→20:42)
[2021-08-30] MEDS: Aspirin 325 MG TAB PO SCH (08:45)
[2021-08-30] MEDS: Enoxaparin Sodium 40 MG/0.4 ML SYRINGE SC SCH (08:45)
[2021-08-30] MEDS: Hydrocortisone 10 mg Tablet PO SCH ×2 (08:45→20:43)
[2021-08-30] MEDS: methylPREDNISolone Sod Succ/PF 125 MG/2 ML VIAL IVP SCH ×2 (08:46→20:42)
[2021-08-30 15:06] LABS: Actual Bicarbonate (HCO3a) 31.5 mEq/L (22-28); Base Excess (BEa) 6.5 mEq/L (-2.0 to +3.0); CO2 Tension 46.5 mmHg (35.0-45.0); Calcium, Ionized (arterial) 1.18 mmol/L (1.12-1.30); Carboxyhemoglobin (COHb) 1.4 gm% (0.0-3.0); Hemoglobin (Hb) 13.2 g/dL (12.0-16.0); O2 Tension (PaO2), arterial 67.9 mmHg (> 80.0); pH, Arterial 7.45 (7.35-7.45)
[2021-08-30 15:08] LABS: Puncture Site LRA
[2021-08-30] MEDS: DULoxetine 60 MG CAP PO SCH (20:43)
[2021-08-30] MEDS: Lisinopril 20 MG TAB PO SCH (20:43)
[2021-08-30] MEDS: Amlodipine 10 MG TAB PO SCH (20:43)
[2021-08-30] MEDS: Atorvastatin Calcium 10 MG TAB PO SCH (20:43)
[2021-08-31] MEDS: Acetaminophen/Codeine 30-300mg Tablet PO SCH ×5 (00:16→23:20)
[2021-08-31] MEDS: Methocarbamol 500 MG TAB PO SCH ×5 (00:16→23:23)
[2021-08-31] MEDS: Levothyroxine Sodium 125 MCG TAB PO SCH (05:56)
[2021-08-31] MEDS: HumaLOG 300 UNITS/3 ML VIAL SC PRN ×3 (05:57→21:09)
[2021-08-31] MEDS: Mometasone/Formoterol 200/5 60 PUFF INH SCH ×2 (06:41→18:23)
[2021-08-31 06:53] LABS: #Eosinphils 0.1 thou/uL (0.0-0.7); #Lymphocytes 1.5 thou/uL (1.20-3.40); #Monocytes 0.5 thou/uL (0.11-0.59); #Neutrophils 11.1 thou/uL (1.40-6.50); %Basophils 0.2 % (0.0-1.0); %Eosinophils 0.5 % (0.0-10.0); %Monocytes 4.1 % (0.0-10.0); %Neutrophils 84.2 % (42.0-75.0); Hemoglobin 13.1 g/dL (12.0-16.0); Mean Corpuscular HGB CONC 31.6 g/dL (32.0-36.0); Mean Corpuscular Hemoglobin 28.7 pg (27.0-31.0); Mean Corpuscular Volume 90.9 fL (78.0-98.0); Platelet Count 321 thou/uL (130-400); RBC Distribution Width 12.8 % (11.5-14.5); Red Blood Cell (RBC) Count 4.56 mill/uL (4.20-5.40); White Blood Cell (WBC) Count 13.2 thou/uL (4.8-10.8)
[2021-08-31 07:11] LABS: Anion Gap 19 mmol/L (10-20); BUN (Urea Nitrogen) 19 mg/dL (9.8-20.1); Calc. Creatinine Clearance 164 mL/min (70-130); Calcium 9.6 mg/dL (7.8-10.44); Carbon Dioxide 22 mmol/L (23-31); Chloride 98 mmol/L (98-107); Estimated GFR 79; Glucose 369 mg/dL (80-115); Magnesium 1.8 mg/dL (1.6-2.6); Potassium 4.4 mmol/L (3.5-5.1); Sodium 135 mmol/L (136-145)
[2021-08-31] MEDS ORDERED: HumaLOG 300 UNITS/3 ML VIAL SC SCH ×3 (07:12)
[2021-08-31] MEDS: Hydrocortisone 10 mg Tablet PO SCH ×2 (09:00→21:04)
[2021-08-31] MEDS: Loratadine 10 MG TAB PO SCH (09:01)
[2021-08-31] MEDS: Aspirin 325 MG TAB PO SCH (09:01)
[2021-08-31] MEDS: Cefepime 2 GM in Sodium Chloride 0.9% 100 ML IVPB SCH ×3 (09:04→23:57)
[2021-08-31] MEDS: methylPREDNISolone Sod Succ/PF 125 MG/2 ML VIAL IVP SCH ×2 (09:05→21:03)
[2021-08-31] MEDS: Insulin Glargine 30 UNITS/0.3 ML VIAL SC SCH ×2 (09:16→22:49)
[2021-08-31] MEDS: Enoxaparin Sodium 40 MG/0.4 ML SYRINGE SC SCH (09:18)
[2021-08-31] MEDS ORDERED: Polyethylene Glycol 3350 17 GM Packet PO SCH (10:45)
[2021-08-31] MEDS: HumaLOG 300 UNITS/3 ML VIAL SC SCH (17:54)
[2021-08-31] MEDS: Amlodipine 10 MG TAB PO SCH (21:04)
[2021-08-31] MEDS: Senokot S 8.6-50 MG TAB PO SCH (21:04)
[2021-08-31] MEDS: DULoxetine 60 MG CAP PO SCH (21:04)
[2021-08-31] MEDS: Lisinopril 20 MG TAB PO SCH (21:04)
[2021-08-31] MEDS: Atorvastatin Calcium 10 MG TAB PO SCH (21:05)
[2021-09-01] MEDS: Acetaminophen/Codeine 30-300mg Tablet PO SCH ×3 (05:28→18:00)
[2021-09-01] MEDS: Levothyroxine Sodium 125 MCG TAB PO SCH (05:29)
[2021-09-01] MEDS: Methocarbamol 500 MG TAB PO SCH ×3 (05:29→18:00)
[2021-09-01 05:44] LABS: #Eosinphils 0.1 thou/uL (0.0-0.7); #Lymphocytes 1.3 thou/uL (1.20-3.40); #Monocytes 0.6 thou/uL (0.11-0.59); #Neutrophils 13.1 thou/uL (1.40-6.50); %Basophils 0.1 % (0.0-1.0); %Eosinophils 0.5 % (0.0-10.0); %Lymphocytes 8.5 % (21.0-51.0); %Monocytes 4.2 % (0.0-10.0); %Neutrophils 86.7 % (42.0-75.0); Hemoglobin 14.1 g/dL (12.0-16.0); Mean Corpuscular HGB CONC 31.4 g/dL (32.0-36.0); Mean Corpuscular Hemoglobin 29.1 pg (27.0-31.0); Mean Corpuscular Volume 92.6 fL (78.0-98.0); Mean Platelet Volume 7.7 fL (7.4-10.4); Platelet Count 325 thou/uL (130-400); RBC Distribution Width 12.7 % (11.5-14.5); Red Blood Cell (RBC) Count 4.86 mill/uL (4.20-5.40); White Blood Cell (WBC) Count 15.1 thou/uL (4.8-10.8)
[2021-09-01 05:51] LABS: Anion Gap 18 mmol/L (10-20); BUN (Urea Nitrogen) 24 mg/dL (9.8-20.1); Calc. Creatinine Clearance 164 mL/min (70-130); Calcium 9.5 mg/dL (7.8-10.44); Carbon Dioxide 24 mmol/L (23-31); Chloride 96 mmol/L (98-107); Estimated GFR 79; Glucose 337 mg/dL (80-115); Magnesium 1.8 mg/dL (1.6-2.6); Potassium 4.4 mmol/L (3.5-5.1); Sodium 134 mmol/L (136-145)
[2021-09-01] MEDS ORDERED: Mag-Al Plus 1200 MG/1200 MG/120 MG/30 ML UDCUP PO SCH (06:00)
[2021-09-01] MEDS: HumaLOG 300 UNITS/3 ML VIAL SC PRN ×4 (06:23→21:43)
[2021-09-01] MEDS: Mometasone/Formoterol 200/5 60 PUFF INH SCH ×2 (06:52→19:13)
[2021-09-01] MEDS: Hydrocortisone 10 mg Tablet PO SCH ×2 (08:45→21:34)
[2021-09-01] MEDS: Senokot S 8.6-50 MG TAB PO SCH ×2 (08:46→21:35)
[2021-09-01] MEDS: Aspirin 325 MG TAB PO SCH (08:46)
[2021-09-01] MEDS: methylPREDNISolone Sod Succ/PF 125 MG/2 ML VIAL IVP SCH ×2 (08:49→21:34)
[2021-09-01] MEDS: Cefepime 2 GM in Sodium Chloride 0.9% 100 ML IVPB SCH ×2 (08:57→16:47)
[2021-09-01] MEDS ORDERED: Polyethylene Glycol 3350 17 GM Packet PO SCH (09:00)
[2021-09-01] MEDS: Insulin Glargine 30 UNITS/0.3 ML VIAL SC SCH ×2 (09:03→21:34)
[2021-09-01] MEDS: HumaLOG 300 UNITS/3 ML VIAL SC SCH ×3 (09:07→17:58)
[2021-09-01] MEDS: Enoxaparin Sodium 40 MG/0.4 ML SYRINGE SC SCH (09:11)
[2021-09-01] MEDS: Loratadine 10 MG TAB PO SCH (09:12)
[2021-09-01 11:00] LABS: Troponin I Less than 0.010 ng/mL (< 0.028)
[2021-09-01 17:20] LABS: Troponin I Less than 0.010 ng/mL (< 0.028)
[2021-09-01] MEDS: Atorvastatin Calcium 10 MG TAB PO SCH (21:34)
[2021-09-01] MEDS: Amlodipine 10 MG TAB PO SCH (21:34)
[2021-09-01] MEDS: DULoxetine 60 MG CAP PO SCH (21:35)
[2021-09-01] MEDS: Lisinopril 20 MG TAB PO SCH (21:35)
[2021-09-02] MEDS: Methocarbamol 500 MG TAB PO SCH ×5 (00:11→23:56)
[2021-09-02] MEDS: Acetaminophen/Codeine 30-300mg Tablet PO SCH ×5 (00:11→23:56)
[2021-09-02] MEDS: Cefepime 2 GM in Sodium Chloride 0.9% 100 ML IVPB SCH ×4 (00:12→23:56)
[2021-09-02] MEDS: Levothyroxine Sodium 125 MCG TAB PO SCH (05:26)
[2021-09-02 05:49] LABS: #Basophils 0.1 thou/uL (0.0-0.2); #Eosinphils 0.1 thou/uL (0.0-0.7); #Lymphocytes 1.4 thou/uL (1.20-3.40); #Monocytes 0.8 thou/uL (0.11-0.59); %Basophils 0.4 % (0.0-1.0); %Eosinophils 0.7 % (0.0-10.0); %Lymphocytes 8.7 % (21.0-51.0); %Monocytes 4.7 % (0.0-10.0); %Neutrophils 85.5 % (42.0-75.0); Hemoglobin 14.4 g/dL (12.0-16.0); Mean Corpuscular HGB CONC 31.7 g/dL (32.0-36.0); Mean Corpuscular Hemoglobin 29.1 pg (27.0-31.0); Mean Corpuscular Volume 91.8 fL (78.0-98.0); Mean Platelet Volume 7.7 fL (7.4-10.4); Platelet Count 323 thou/uL (130-400); RBC Distribution Width 12.8 % (11.5-14.5); Red Blood Cell (RBC) Count 4.94 mill/uL (4.20-5.40); White Blood Cell (WBC) Count 16.3 thou/uL (4.8-10.8)
[2021-09-02] MEDS: HumaLOG 300 UNITS/3 ML VIAL SC PRN ×4 (05:49→21:32)
[2021-09-02 06:06] LABS: Anion Gap 16 mmol/L (10-20); BUN (Urea Nitrogen) 26 mg/dL (9.8-20.1); Calc. Creatinine Clearance 177 mL/min (70-130); Calcium 9.3 mg/dL (7.8-10.44); Carbon Dioxide 29 mmol/L (23-31); Chloride 97 mmol/L (98-107); Estimated GFR 86; Glucose 196 mg/dL (80-115); Magnesium 1.8 mg/dL (1.6-2.6); Potassium 4.1 mmol/L (3.5-5.1); Sodium 138 mmol/L (136-145)
[2021-09-02] MEDS: Mometasone/Formoterol 200/5 60 PUFF INH SCH ×2 (06:42→19:37)
[2021-09-02] MEDS ORDERED: Milk Of Magnesia 30 ML UDCUP PO SCH (08:00)
[2021-09-02] MEDS: Hydrocortisone 10 mg Tablet PO SCH ×2 (09:21→21:27)
[2021-09-02] MEDS: Loratadine 10 MG TAB PO SCH (09:21)
[2021-09-02] MEDS: Senokot S 8.6-50 MG TAB PO SCH ×2 (09:21→21:28)
[2021-09-02] MEDS: Aspirin 325 MG TAB PO SCH (09:21)
[2021-09-02] MEDS: Polyethylene Glycol 3350 17 GM Packet PO SCH ×2 (09:22→21:42)
[2021-09-02] MEDS: Enoxaparin Sodium 40 MG/0.4 ML SYRINGE SC SCH (09:22)
[2021-09-02] MEDS: HumaLOG 300 UNITS/3 ML VIAL SC SCH ×3 (09:23→18:42)
[2021-09-02] MEDS: Insulin Glargine 30 UNITS/0.3 ML VIAL SC SCH ×2 (09:27→21:28)
[2021-09-02] MEDS: methylPREDNISolone Sod Succ/PF 125 MG/2 ML VIAL IVP SCH ×2 (09:48→21:49)
[2021-09-02] MEDS: Fluticasone Propionate Nasal Spray 16 gm Bottle NASAL SCH ×2 (12:37→21:29)
[2021-09-02] MEDS: DULoxetine 60 MG CAP PO SCH (21:27)
[2021-09-02] MEDS: Lisinopril 20 MG TAB PO SCH (21:28)
[2021-09-02] MEDS: Atorvastatin Calcium 10 MG TAB PO SCH (21:28)
[2021-09-02] MEDS: Amlodipine 10 MG TAB PO SCH (21:28)
[2021-09-02] MEDS ORDERED: methylPREDNISolone Sod Succ 40 MG VIAL IVP SCH (22:00)
[2021-09-03] MEDS: Methocarbamol 500 MG TAB PO SCH ×3 (05:49→17:39)
[2021-09-03] MEDS: Levothyroxine Sodium 125 MCG TAB PO SCH (05:49)
[2021-09-03] MEDS: Acetaminophen/Codeine 30-300mg Tablet PO SCH ×3 (05:49→17:40)
[2021-09-03] MEDS: HumaLOG 300 UNITS/3 ML VIAL SC PRN (05:53)
[2021-09-03 06:13] LABS: #Basophils 0.1 thou/uL (0.0-0.2); #Eosinphils 0.1 thou/uL (0.0-0.7); #Lymphocytes 1.5 thou/uL (1.20-3.40); #Neutrophils 16.1 thou/uL (1.40-6.50); %Basophils 0.3 % (0.0-1.0); %Eosinophils 0.6 % (0.0-10.0); %Lymphocytes 7.8 % (21.0-51.0); %Monocytes 5.1 % (0.0-10.0); %Neutrophils 86.3 % (42.0-75.0); Hemoglobin 14.2 g/dL (12.0-16.0); Mean Corpuscular HGB CONC 31.2 g/dL (32.0-36.0); Mean Corpuscular Hemoglobin 29.1 pg (27.0-31.0); Mean Corpuscular Volume 93.3 fL (78.0-98.0); Mean Platelet Volume 7.6 fL (7.4-10.4); Platelet Count 331 thou/uL (130-400); RBC Distribution Width 13.1 % (11.5-14.5); Red Blood Cell (RBC) Count 4.88 mill/uL (4.20-5.40); White Blood Cell (WBC) Count 18.7 thou/uL (4.8-10.8)
[2021-09-03 06:35] LABS: Anion Gap 14 mmol/L (10-20); BUN (Urea Nitrogen) 26 mg/dL (9.8-20.1); Calc. Creatinine Clearance 166 mL/min (70-130); Calcium 9.1 mg/dL (7.8-10.44); Carbon Dioxide 29 mmol/L (23-31); Chloride 98 mmol/L (98-107); Estimated GFR 80; Glucose 244 mg/dL (80-115); Potassium 4.5 mmol/L (3.5-5.1); Sodium 136 mmol/L (136-145)
[2021-09-03] MEDS: Mometasone/Formoterol 200/5 60 PUFF INH SCH ×2 (06:53→19:17)
[2021-09-03] MEDS: Hydrocortisone 10 mg Tablet PO SCH ×2 (08:46→21:28)
[2021-09-03] MEDS: methylPREDNISolone Sod Succ 40 MG VIAL IVP SCH ×2 (08:46→21:55)
[2021-09-03] MEDS: Loratadine 10 MG TAB PO SCH (08:47)
[2021-09-03] MEDS: HumaLOG 300 UNITS/3 ML VIAL SC SCH ×3 (08:47→17:34)
[2021-09-03] MEDS: Senokot S 8.6-50 MG TAB PO SCH ×2 (08:47→21:28)
[2021-09-03] MEDS: Aspirin 325 MG TAB PO SCH (08:47)
[2021-09-03] MEDS: Enoxaparin Sodium 40 MG/0.4 ML SYRINGE SC SCH (08:47)
[2021-09-03] MEDS: Cefepime 2 GM in Sodium Chloride 0.9% 100 ML IVPB SCH ×2 (08:47→16:37)
[2021-09-03] MEDS: Polyethylene Glycol 3350 17 GM Packet PO SCH ×2 (08:47→21:27)
[2021-09-03] MEDS: Fluticasone Propionate Nasal Spray 16 gm Bottle NASAL SCH ×2 (08:58→21:55)
[2021-09-03] MEDS: Insulin Glargine 30 UNITS/0.3 ML VIAL SC SCH ×2 (09:20→21:27)
[2021-09-03] MEDS ORDERED: Mag-Al 1200 mg/1200 mg/30 ML UDCUP PO PRN (10:02)
[2021-09-03] MEDS ORDERED: Benzonatate 100 MG CAP PO PRN (10:06)
[2021-09-03] MEDS: Amlodipine 10 MG TAB PO SCH (21:28)
[2021-09-03] MEDS: Bisacodyl 10 MG SUPP PR SCH (21:29)
[2021-09-03] MEDS: DULoxetine 60 MG CAP PO SCH (21:29)
[2021-09-03] MEDS: Lisinopril 20 MG TAB PO SCH (21:29)
[2021-09-03] MEDS: Atorvastatin Calcium 10 MG TAB PO SCH (21:29)
[2021-09-04] MEDS: Cefepime 2 GM in Sodium Chloride 0.9% 100 ML IVPB SCH ×3 (00:47→15:13)
[2021-09-04] MEDS: Acetaminophen/Codeine 30-300mg Tablet PO SCH ×4 (00:48→17:09)
[2021-09-04] MEDS: Methocarbamol 500 MG TAB PO SCH ×4 (00:48→17:09)
[2021-09-04] MEDS: Levothyroxine Sodium 125 MCG TAB PO SCH (05:20)
[2021-09-04 06:12] LABS: Anion Gap 16 mmol/L (10-20); BUN (Urea Nitrogen) 31 mg/dL (9.8-20.1); Calc. Creatinine Clearance 171 mL/min (70-130); Calcium 8.8 mg/dL (7.8-10.44); Carbon Dioxide 26 mmol/L (23-31); Chloride 99 mmol/L (98-107); Estimated GFR 82; Glucose 214 mg/dL (80-115); Potassium 4.8 mmol/L (3.5-5.1); Sodium 136 mmol/L (136-145)
[2021-09-04 06:20] LABS: Hemoglobin 13.8 g/dL (12.0-16.0); MDiff Complete? YES; Mean Corpuscular HGB CONC 30.9 g/dL (32.0-36.0); Mean Corpuscular Hemoglobin 28.9 pg (27.0-31.0); Mean Corpuscular Volume 93.6 fL (78.0-98.0); Platelet Count 328 thou/uL (130-400); RBC Distribution Width 13.1 % (11.5-14.5); Red Blood Cell (RBC) Count 4.76 mill/uL (4.20-5.40)
[2021-09-04 06:21] LABS: Band 14 % (5-11); Lymphocytes 6 % (21-51); Monocytes 4 % (0-10); Neutrophil 76 % (42-75)
[2021-09-04] MEDS: Mometasone/Formoterol 200/5 60 PUFF INH SCH ×2 (07:26→18:46)
[2021-09-04] MEDS: Enoxaparin Sodium 40 MG/0.4 ML SYRINGE SC SCH (08:10)
[2021-09-04] MEDS: Fluticasone Propionate Nasal Spray 16 gm Bottle NASAL SCH ×2 (08:11→19:40)
[2021-09-04] MEDS: Insulin Glargine 30 UNITS/0.3 ML VIAL SC SCH ×2 (08:11→21:54)
[2021-09-04] MEDS: Aspirin 325 MG TAB PO SCH (08:11)
[2021-09-04] MEDS: HumaLOG 300 UNITS/3 ML VIAL SC SCH ×3 (08:11→17:11)
[2021-09-04] MEDS: Polyethylene Glycol 3350 17 GM Packet PO SCH ×2 (08:11→19:38)
[2021-09-04] MEDS: Loratadine 10 MG TAB PO SCH (08:12)
[2021-09-04] MEDS: Senokot S 8.6-50 MG TAB PO SCH ×2 (08:12→19:38)
[2021-09-04] MEDS: Hydrocortisone 10 mg Tablet PO SCH ×2 (08:12→19:38)
[2021-09-04] MEDS: methylPREDNISolone Sod Succ 40 MG VIAL IVP SCH (08:19)
[2021-09-04 19:35] VITALS: BP 114/59; TEMP 98.2
[2021-09-04] MEDS: Atorvastatin Calcium 10 MG TAB PO SCH (19:37)
[2021-09-04] MEDS: Amlodipine 10 MG TAB PO SCH (19:37)
[2021-09-04] MEDS: Lisinopril 20 MG TAB PO SCH (19:37)
[2021-09-04] MEDS: DULoxetine 60 MG CAP PO SCH (19:37)
[2021-09-04] MEDS: Bisacodyl 10 MG SUPP PR SCH (19:38)
[2021-09-05] MEDS ORDERED: predniSONE 20 MG TAB PO SCH (08:00)
== END 2021-09-04 22:15 | DRG 193 ==
LOC: ERS 08:38 → SURG A 11:34
PROVIDERS: ADMIT Internal Medicine; ATTEND Internal Medicine
DX: J18.9 Pneumonia, unspecified organism (principal); J96.01 Acute respiratory failure with hypoxia; J45.901 Unspecified asthma with (acute) exacerbation; E66.2 Morbid (severe) obesity with alveolar hypoventilation; Z68.44 Body mass index [BMI] 60.0-69.9, adult; Z20.822 Contact with and (suspected) exposure to COVID-19; K58.9 Irritable bowel syndrome, unspecified; E78.5 Hyperlipidemia, unspecified; I10 Essential (primary) hypertension; F32.A Depression, unspecified; E11.9 Type 2 diabetes mellitus without complications; E03.9 Hypothyroidism, unspecified; M19.90 Unspecified osteoarthritis, unspecified site; E88.81 Metabolic syndrome and other insulin resistance; M45.9 Ankylosing spondylitis of unspecified sites in spine; M21.372 Foot drop, left foot; K21.9 Gastro-esophageal reflux disease without esophagitis; E87.6 Hypokalemia; Z90.49 Acquired absence of other specified parts of digestive tract; Z88.5 Allergy status to narcotic agent; Z91.041 Radiographic dye allergy status; Z88.8 Allergy status to other drugs, medicaments and biological substances; Z88.1 Allergy status to other antibiotic agents; Z98.84 Bariatric surgery status
CPT/HCPCS: 36415; 36416; 36600; 71045; 71250; 72131; 74018; 80048; 80053; 80061; 80076; 81001; 82805; 83036; 83605; 83735; 83880; 84439; 84443; 84484; 85025; 86140; 87040; 87070; 87086; 87205; 87804; 93005; 93010; 94640; 96365; 96366; 96367; 96375; J0692; J1650; J1815; J1956; J2920; J2930; J3490; J7512; J7620; U0002; U0003; U0005

== ENCOUNTER 2022-12-02 19:34 | Inpatient (IN) | payer MEDICARE, MEDICAID ==
[~2022-12-02 19:34] MED LIST: Iopamidol-370 76% 500 ML MDV (1 ML CHARGE) ONE
[2022-12-02 20:32] LABS: #Basophils 0.1 thou/uL (0.0-0.2); #Eosinphils 0.6 thou/uL (0.0-0.7); #Monocytes 0.7 thou/uL (0.11-0.59); #Neutrophils 11.4 thou/uL (1.40-6.50); %Basophils 0.5 % (0.0-1.0); %Eosinophils 4.2 % (0.0-10.0); %Lymphocytes 14.2 % (21.0-51.0); %Monocytes 4.9 % (0.0-10.0); %Neutrophils 75.8 % (42.0-75.0); Hematocrit 35.3 % (36.0-47.0); Hemoglobin 10.6 g/dL (12.0-16.0); Mean Corpuscular Hemoglobin 24.9 pg (27.0-31.0); Mean Corpuscular Volume 82.9 fl (78.0-98.0); Platelet Count 358 10x3/uL (130-400); RBC Distribution Width 16.9 % (11.5-14.5); Red Blood Cell (RBC) Count 4.26 mill/uL (4.20-5.40); White Blood Cell (WBC) Count 15.1 10x3/uL (4.8-10.8)
[2022-12-02] MEDS ORDERED: diphenhydrAMINE 50 MG/ML VIAL ONE (20:41)
[2022-12-02] MEDS ORDERED: methylPREDNISolone Sod Succ 40 MG VIAL ONE (20:41)
[2022-12-02] MEDS ORDERED: Famotidine/PF 20 mg/2ml Vial ONE (20:41)
[2022-12-02 20:55] LABS: ALT (SGPT) 26 U/L (8-55); AST (SGOT) 27 U/L (5-34); Albumin 4.2 g/dL (3.4-4.8); Alkaline Phosphatase 54 U/L (40-110); Anion Gap 18 mmol/L (10-20); BUN (Urea Nitrogen) 14 mg/dL (9.8-20.1); Bilirubin, Total 0.2 mg/dL (0.2-1.2); Calc. Creatinine Clearance 0 mL/min (70-130); Calcium 9.2 mg/dL (7.8-10.44); Carbon Dioxide 22 mmol/L (23-31); Chloride 101 mmol/L (98-107); Estimated GFR 87; Globulin 2.8 g/dL (2.4-3.5); Glucose 141 mg/dL (80-115); Lipase 7 U/L (8-78); Potassium 4.4 mmol/L (3.5-5.1); Sodium 137 mmol/L (136-145)
[2022-12-02 20:59] LABS: Troponin I Less than 0.010 ng/mL (< 0.028)
[2022-12-03 00:23] LABS: Bacteria/HPF None Seen HPF (None Seen); Bilirubin Negative (Negative); Blood, Urine Negative (Negative); CAUTI Indications for Culture Pelvic or flank pain; Clarity Clear (Clear); Glucose, Urine (Dipstick) Normal (Negative); Ketone, Urine Negative (Negative); Leukocyte Negative Leu/uL (Negative); Nitrite Negative (Negative); Protein, Urine (Dipstick) Negative (Neg-Trace); RBC/HPF None Seen HPF (0-3); Squamous Epithelial None Seen HPF (0-3); Urobilinogen Normal mg/dL (Less than 2); WBC/HPF 0-3 HPF (0-3)
[2022-12-03 00:28] LABS: Lactic Acid 3.9 mmol/L (0.5-2.2)
[2022-12-03 00:48] LABS: Urine Culture Reflex No No
[2022-12-03] MEDS ORDERED: Cefepime 2 GM VIAL ONE (01:41)
[2022-12-03 02:59] VITALS: BMI 59.1
[2022-12-03] MEDS ORDERED: Ondansetron PF 4 MG/2 ML Vial IVP PRN (03:15)
[2022-12-03] MEDS ORDERED: Acetaminophen 325 MG TAB PO PRN (03:15)
[2022-12-03] MEDS ORDERED: Ondansetron ODT 4 MG TAB SL PRN (03:15)
[2022-12-03] MEDS: Sodium Chloride 0.9% 1,000 ML IV SCH ×2 (03:20→14:18)
[2022-12-03] MEDS ORDERED: Acetaminophen 650 MG Suppository PR PRN (03:51)
[2022-12-03] MEDS ORDERED: Dextrose 5% in Water 1,000 ML IV PRN (04:31)
[2022-12-03] MEDS ORDERED: Glucagon 1 MG/ML KIT IM PRN (04:31)
[2022-12-03] MEDS ORDERED: Dextrose 50% Abboject 50 ML SYRINGE SLOW IVP PRN (04:31)
[2022-12-03] MEDS ORDERED: HumaLOG 300 UNITS/3 ML VIAL SC PRN (04:31)
[2022-12-03] MEDS: HumaLOG 300 UNITS/3 ML VIAL SC PRN ×3 (05:49→17:17)
[2022-12-03 06:15] LABS: Hemoglobin A1c 6.9 % (4.0-6.0)
[2022-12-03 06:24] LABS: Lactic Acid 3.9 mmol/L (0.5-2.2)
[2022-12-03] MEDS ORDERED: Cefepime 2 GM in Sodium Chloride 0.9% 100 ML IVPB SCH (10:00)
[2022-12-03] MEDS ORDERED: Polyethylene Glycol 3350 17 GM Packet PO SCH (13:30)
[2022-12-03] MEDS ORDERED: Senokot S 8.6-50 MG TAB PO SCH (13:30)
[2022-12-03] MEDS ORDERED: Melatonin 3 MG TAB PO PRN (13:44)
[2022-12-03] MEDS ORDERED: Hydrocortisone 10 mg Tablet PO SCH (14:00)
[2022-12-03] MEDS: Icosapent Ethyl 1 GM CAPSULE PO SCH (17:16)
[2022-12-03] MEDS: metFORMIN 500 MG TAB PO SCH (17:17)
[2022-12-03] MEDS: Mometasone 100 MCG/Formoterol 5 MCG 120 PUFF INHALER INH SCH (18:45)
[2022-12-03] MEDS: Lisinopril 20 MG TAB PO SCH (21:51)
[2022-12-03] MEDS ORDERED: Benzonatate 100 MG CAP PO PRN (21:52)
[2022-12-03] MEDS: Atorvastatin Calcium 10 MG TAB PO SCH (21:52)
[2022-12-03] MEDS: Allopurinol 100 MG TAB PO SCH (21:52)
[2022-12-03] MEDS: Insulin Glargine 30 UNITS/0.3 ML VIAL SC SCH (21:52)
[2022-12-03] MEDS ORDERED: Lidocaine 4% Patch TD SCH (22:45)
[2022-12-04] MEDS: Acetaminophen 500 MG TAB PO PRN ×2 (00:26→21:01)
[2022-12-04 05:09] LABS: #Basophils 0.1 thou/uL (0.0-0.2); #Eosinphils 0.3 thou/uL (0.0-0.7); #Monocytes 0.9 thou/uL (0.11-0.59); #Neutrophils 10.4 thou/uL (1.40-6.50); %Basophils 0.3 % (0.0-1.0); %Eosinophils 2.3 % (0.0-10.0); %Lymphocytes 20.2 % (21.0-51.0); %Monocytes 5.8 % (0.0-10.0); %Neutrophils 70.6 % (42.0-75.0); Hemoglobin 10.3 g/dL (12.0-16.0); Mean Corpuscular HGB CONC 30.3 g/dL (32.0-36.0); Mean Corpuscular Hemoglobin 24.8 pg (27.0-31.0); Mean Corpuscular Volume 81.9 fl (78.0-98.0); Mean Platelet Volume 10.4 fL (7.4-10.4); Platelet Count 375 10x3/uL (130-400); RBC Distribution Width 16.9 % (11.5-14.5); Red Blood Cell (RBC) Count 4.15 mill/uL (4.20-5.40); White Blood Cell (WBC) Count 14.7 10x3/uL (4.8-10.8)
[2022-12-04 05:51] LABS: Anion Gap 14 mmol/L (10-20); BUN (Urea Nitrogen) 12 mg/dL (9.8-20.1); Calc. Creatinine Clearance 161 mL/min (70-130); Calcium 8.9 mg/dL (7.8-10.44); Carbon Dioxide 25 mmol/L (23-31); Chloride 105 mmol/L (98-107); Estimated GFR 82; Glucose 122 mg/dL (80-115); Potassium 3.4 mmol/L (3.5-5.1); Sodium 141 mmol/L (136-145)
[2022-12-04] MEDS: Mometasone 100 MCG/Formoterol 5 MCG 120 PUFF INHALER INH SCH ×2 (06:42→18:44)
[2022-12-04] MEDS: metFORMIN 500 MG TAB PO SCH ×2 (08:51→17:44)
[2022-12-04] MEDS: DULoxetine 60 MG CAP PO SCH (08:51)
[2022-12-04] MEDS: Icosapent Ethyl 1 GM CAPSULE PO SCH ×2 (08:51→17:44)
[2022-12-04] MEDS: Sertraline 100 MG TAB PO SCH (08:52)
[2022-12-04] MEDS: Senokot S 8.6-50 MG TAB PO SCH (08:52)
[2022-12-04] MEDS: Hydrocortisone 10 mg Tablet PO SCH (08:52)
[2022-12-04] MEDS: Amlodipine 10 MG TAB PO SCH (08:52)
[2022-12-04] MEDS ORDERED: Hydrocortisone 10 mg Tablet PO SCH ×2 (09:00)
[2022-12-04] MEDS ORDERED: Transdermal Patch Removal TOP SCH (10:45)
[2022-12-04] MEDS: Polyethylene Glycol 3350 17 GM Packet PO SCH (11:43)
[2022-12-04] MEDS: Lisinopril 20 MG TAB PO SCH (21:00)
[2022-12-04] MEDS: Allopurinol 100 MG TAB PO SCH (21:01)
[2022-12-04] MEDS: Insulin Glargine 30 UNITS/0.3 ML VIAL SC SCH (21:01)
[2022-12-04] MEDS: Atorvastatin Calcium 10 MG TAB PO SCH (21:01)
[2022-12-05] MEDS: Mometasone 100 MCG/Formoterol 5 MCG 120 PUFF INHALER INH SCH (07:32)
[2022-12-05] MEDS: Sertraline 100 MG TAB PO SCH (09:33)
[2022-12-05] MEDS: Polyethylene Glycol 3350 17 GM Packet PO SCH (09:33)
[2022-12-05] MEDS: Senokot S 8.6-50 MG TAB PO SCH (09:33)
[2022-12-05] MEDS: DULoxetine 60 MG CAP PO SCH (09:33)
[2022-12-05] MEDS: metFORMIN 500 MG TAB PO SCH ×2 (09:33→16:45)
[2022-12-05] MEDS: Amlodipine 10 MG TAB PO SCH (09:34)
[2022-12-05] MEDS: Hydrocortisone 10 mg Tablet PO SCH (09:34)
[2022-12-05] MEDS: Icosapent Ethyl 1 GM CAPSULE PO SCH ×2 (15:53→16:45)
[2022-12-05 16:54] VITALS: BP 144/70; TEMP 98.2
== END 2022-12-05 17:46 | DRG 392 ==
LOC: ERS 19:34 → T4-A 12-03 01:54
PROVIDERS: ADMIT Student in an Organized Health Care Education/Training Program; ATTEND Internal Medicine
PROC: 0T9B70Z Drainage of Bladder with Drainage Device, Via Natural or Artificial Opening (ICD-10-PCS; principal; 2022-12-03)
PROC: 3E03329 Introduction of Other Anti-infective into Peripheral Vein, Percutaneous Approach (ICD-10-PCS; 2022-12-03)
DX: R10.11 Right upper quadrant pain (principal); Z68.43 Body mass index [BMI] 50.0-59.9, adult; E87.20 Acidosis, unspecified; E27.40 Unspecified adrenocortical insufficiency; E11.9 Type 2 diabetes mellitus without complications; E78.5 Hyperlipidemia, unspecified; I10 Essential (primary) hypertension; J45.909 Unspecified asthma, uncomplicated; F32.A Depression, unspecified; N20.0 Calculus of kidney; K76.0 Fatty (change of) liver, not elsewhere classified; E66.01 Morbid (severe) obesity due to excess calories; R19.05 Periumbilic swelling, mass or lump; K43.2 Incisional hernia without obstruction or gangrene; E88.810 Metabolic syndrome; D72.829 Elevated white blood cell count, unspecified; T38.0X5A Adverse effect of glucocorticoids and synthetic analogues, initial encounter; K59.01 Slow transit constipation; Z91.041 Radiographic dye allergy status; Z90.49 Acquired absence of other specified parts of digestive tract; Z88.8 Allergy status to other drugs, medicaments and biological substances; Z88.1 Allergy status to other antibiotic agents; Z79.51 Long term (current) use of inhaled steroids; Z79.899 Other long term (current) drug therapy; Z79.4 Long term (current) use of insulin; Z79.84 Long term (current) use of oral hypoglycemic drugs; Z98.84 Bariatric surgery status
CPT/HCPCS: 36415; 36416; 51701; 71045; 74177; 76705; 80048; 80053; 81001; 83036; 83605; 83690; 83880; 84484; 85025; 87040; 87086; 94640; 96374; 96375; J0692; J1200; J1815; J2920; J3490; J7050; J7611; Q9967; S0028

== ENCOUNTER 2024-01-31 19:41 | Inpatient (IN) | payer MEDICARE, MEDICAID ==
[2024-01-31 20:40] LABS: #Basophils 0.05 10x3/uL (0.0-0.2); %Basophils 0.5 % (0.0-1.0); %Eosinophils 3.9 % (0.0-10.0); %Lymphocytes 15.9 % (21.0-51.0); %Monocytes 11.8 % (0.0-10.0); %Neutrophils 66.3 % (42.0-75.0); Hematocrit 33.5 % (36.0-47.0); Hemoglobin 10.2 g/dL (12.0-16.0); Mean Corpuscular HGB CONC 30.4 g/dL (32.0-36.0); Mean Corpuscular Hemoglobin 24.8 pg (27.0-31.0); Mean Corpuscular Volume 81.3 fL (78.0-98.0); Mean Platelet Volume 10.3 fL (7.4-10.4); Platelet Count 357 10x3/uL (130-400); RBC Distribution Width 16.3 % (11.5-14.5); Red Blood Cell (RBC) Count 4.12 mill/uL (4.20-5.40)
[2024-01-31 20:55] LABS: ALT (SGPT) 27 U/L (8-55); AST (SGOT) 35 U/L (5-34); Albumin 3.1 g/dL (3.4-4.8); Alkaline Phosphatase 63 U/L (40-110); Anion Gap 17 mmol/L (10-20); BUN (Urea Nitrogen) 15 mg/dL (9.8-20.1); Bilirubin, Total 0.5 mg/dL (0.2-1.2); Calc. Creatinine Clearance 0 mL/min (70-130); Calcium 9.3 mg/dL (7.8-10.44); Carbon Dioxide 27 mmol/L (23-31); Chloride 99 mmol/L (98-107); Estimated GFR 93; Globulin 3.8 g/dL (2.4-3.5); Glucose 120 mg/dL (83-110); Potassium 3.8 mmol/L (3.5-5.1); Protein, Total 6.9 g/dL (5.8-8.1); Sodium 139 mmol/L (136-145)
[2024-01-31 21:56] LABS: Actual Bicarbonate (HCO3v) 26.6 mEq/L (22-28); Analyzer IN Cardio ER; Base Excess 2.7 mEq/L (-2.0 to +3.0); Calcium, Ionized (venous) 1.07 mmol/L (1.16-1.32); Chloride (VBG) 99 mmol/L (98-106); Hematocrit-VBG 34 % (36.0-47.0); Hemoglobin (Hb) 11.6 g/dL (11.7-16.1); Potassium (VBG) 3.74 mmol/L (3.70-5.30); Sodium 139 mmol/L (133-146); pH (venous) 7.458 (7.32-7.43)
[2024-01-31] MEDS ORDERED: Cefepime 2 GM VIAL ONE (22:05)
[2024-01-31 22:09] LABS: Acetaminophen Less than 10 mcg/mL (Less than 10); Alcohol Less than 10.0 mg/dL (Less than 10); Salicylate Less than 8.0 mg/dL (Less than 8.0)
[2024-01-31 22:14] LABS: Lipase 17 U/L (8-78)
[2024-01-31 22:23] LABS: Troponin I 0.016 ng/mL (< 0.028)
[2024-01-31] MEDS ORDERED: Magnesium 2 GM/50 ML BAG (IN WATER) ONE (23:25)
[2024-02-01] MEDS: Oseltamivir 6 MG/ML ORAL SUSP PO SCH (00:38)
[2024-02-01] MEDS: Linezolid 600 MG in Premix 1 BAG IVPB SCH (01:27)
[2024-02-01] MEDS: Ipratropium/Albuterol 3 ML NEB NEB SCH ×2 (01:46→08:46)
[2024-02-01] MEDS ORDERED: Dextrose 5% in Water 1,000 ML IV PRN (02:14)
[2024-02-01] MEDS ORDERED: Dextrose 50% Abboject 50 ML SYRINGE SLOW IVP PRN (02:14)
[2024-02-01] MEDS ORDERED: Glucagon 1 MG/ML KIT IM PRN (02:14)
[2024-02-01] MEDS ORDERED: Electrolyte Replacement Protocol 1 EACH FS SCH (02:15)
[2024-02-01 02:17] LABS: Actual Bicarbonate (HCO3a) 23.9 mEq/L (22-28); Analyzer IN Cardio ER; Base Excess (BEa) -0.6 mEq/L (-2.0 to +3.0); CO2 Tension 38.6 mmHg (35.0-45.0); Calcium, Ionized (arterial) 1.12 mmol/L (1.12-1.30); Hematocrit-ABG 30 % (36.0-47.0); Hemoglobin (Hb) 10.3 g/dL (12.0-16.0); O2 Tension (PaO2), arterial 104.1 mmHg (> 70.0); Potassium - ABG Lab 3.54 mmol/L (3.70-5.30)
[2024-02-01 02:18] LABS: Puncture Site Right Radial artery
[2024-02-01] MEDS ORDERED: Rocuronium Bromide 10 MG/ML (10ML VIAL) ONE (04:52)
[2024-02-01] MEDS ORDERED: Etomidate 40 MG (20 mL) VIAL ONE (04:52)
[2024-02-01] MEDS ORDERED: Albuterol 2.5 MG (3 mL) NEB NEB PRN (05:11)
[2024-02-01] MEDS ORDERED: Ventilator Sedation Protocol FS SCH (05:15)
[2024-02-01 05:39] LABS: Analyzer IN Cardio ER; Base Excess (BEa) -1.7 mEq/L (-2.0 to +3.0); CO2 Tension 33.5 mmHg (35.0-45.0); Calcium, Ionized (arterial) 1.11 mmol/L (1.12-1.30); Carboxyhemoglobin (COHb) 0.5 gm% (0.0-3.0); Hematocrit-ABG 31 % (36.0-47.0); Hemoglobin (Hb) 10.4 g/dL (12.0-16.0); O2 Tension (PaO2), arterial 80.2 mmHg (> 70.0); Potassium - ABG Lab 3.41 mmol/L (3.70-5.30); pH, Arterial 7.435 (7.35-7.45)
[2024-02-01 05:40] LABS: Puncture Site Right Radial artery
[2024-02-01 05:41] LABS: ALV-art Gradient 234.425 mmHg (0-20)
[2024-02-01] MEDS ORDERED: Morphine 2 MG/ML VIAL SLOW IVP PRN (05:45)
[2024-02-01] MEDS ORDERED: Fentanyl BOLUS 250 ML IVPB PRN (05:45)
[2024-02-01] MEDS ORDERED: Lorazepam 2 MG/ML VIAL SLOW IVP PRN (05:45)
[2024-02-01] MEDS ORDERED: Propofol 1,000 MG/100 ML VIAL IV ONE (06:21)
[2024-02-01] MEDS: Propofol 1,000 MG/100 ML VIAL IV PRN (06:28)
[2024-02-01 06:29] LABS: Bilirubin Negative (Negative); Blood, Urine 1+ (Negative); CAUTI Indications for Culture Dysuria,urgency,freq; Clarity Extra Turbid (Clear); Glucose, Urine (Dipstick) Normal (Negative); Ketone, Urine Trace mg/dL (Negative); Leukocyte 500 Leu/uL (Negative); Nitrite Negative (Negative); Protein, Urine (Dipstick) 70 mg/dL (Neg-Trace); Specific Gravity, Urine 1.026 (1.002-1.036); Squamous Epithelial 0-3 HPF (0-3); Urobilinogen Normal mg/dL (Less than 2); WBC/HPF Greater than 50 HPF (0-3); pH, Urine 5.5 (5.0-9.0)
[2024-02-01] MEDS: Propofol BOLUS 1,000 MG/100 ML VIAL IV PRN (06:29)
[2024-02-01 06:30] LABS: Amphetamine Not Detected (NotDetected); Bacteria/HPF 1+ HPF (None Seen); Barbiturates Screen Not Detected (NotDetected); Benzodiazepine Screen Not Detected (NotDetected); Cocaine Metabolite Screen Not Detected (NotDetected); Methadone Not Detected (NotDetected); Methamphetamine Not Detected (NotDetected); Opiate Screen Detected (NotDetected); Oxycodone Screen Not Detected (NotDetected); Phencyclidine (PCP) Not Detected (NotDetected); THC/Cannabinoid Screen Not Detected (NotDetected); Tricyclic Screen Not Detected (NotDetected); Urine Culture Reflex Yes Yes
[2024-02-01] MEDS ORDERED: Ipratropium/Albuterol 3 ML NEB NEB SCH (06:30)
[2024-02-01] MEDS ORDERED: Magnesium 2 GM/50 ML BAG (IN WATER) ONE (06:32)
[2024-02-01] MEDS ORDERED: methylPREDNISolone Sod Succ/PF 125 MG/2 ML VIAL ONE (06:32)
[2024-02-01] MEDS: Magnesium 2 GM/50 ML(in water) 2 GM in Premix 1 BAG IVPB SCH (06:41)
[2024-02-01] MEDS: methylPREDNISolone Sod Succ/PF 125 MG/2 ML VIAL IVP SCH (06:41)
[2024-02-01] MEDS ORDERED: metFORMIN 500 MG TAB PER TUBE SCH (08:00)
[2024-02-01] MEDS ORDERED: Hydrocortisone 10 mg Tablet PO SCH (08:00)
[2024-02-01] MEDS ORDERED: metFORMIN 500 MG TAB PO SCH (08:00)
[2024-02-01] MEDS ORDERED: Icosapent Ethyl 1 GM CAPSULE PO SCH (08:00)
[2024-02-01] MEDS: Mometasone 100 MCG/Formoterol 5 MCG 120 PUFF INHALER INH SCH (08:38)
[2024-02-01] MEDS ORDERED: Oseltamivir 75 MG CAP PO SCH (09:00)
[2024-02-01] MEDS ORDERED: Cholecalciferol 1,000 UNITS (25 MCG) TAB PO SCH (09:00)
[2024-02-01] MEDS ORDERED: Amlodipine 10 MG TAB PO SCH (09:00)
[2024-02-01] MEDS ORDERED: Ipratropium/Albuterol 3 ML NEB ONE (09:01)
[2024-02-01] MEDS: Amlodipine 10 MG TAB PER TUBE SCH (10:53)
[2024-02-01] MEDS: Cholecalciferol 1,000 UNITS (25 MCG) TAB PER TUBE SCH (11:14)
[2024-02-01] MEDS: Oseltamivir 75 MG CAP PER TUBE SCH (11:15)
[2024-02-01] MEDS: Enoxaparin 40 MG (0.4 mL) SYRINGE SC SCH (11:15)
[2024-02-01] MEDS: Insulin Lispro 100 UNIT/ML 10 ML VIAL SC PRN (11:18)
[2024-02-01] MEDS: Insulin Glargine 30 UNITS/0.3 ML VIAL SC SCH ×2 (11:18→20:45)
[2024-02-01] MEDS: Icosapent Ethyl 1 GM CAPSULE PER TUBE SCH (11:27)
[2024-02-01] MEDS: FLU (Fluad Triv) TS24-25 (65UP)/MF59C/PF 45 MCG/0.5 ML Syringe IM ONE (11:28)
[2024-02-01 12:00] LABS: Bilirubin Negative (Negative); Blood, Urine 1+ (Negative); CAUTI Indications for Culture Alt mental st,lethar; Clarity Extra Turbid (Clear); Glucose, Urine (Dipstick) Normal (Negative); Ketone, Urine Trace mg/dL (Negative); Leukocyte 500 Leu/uL (Negative); Nitrite Negative (Negative); Protein, Urine (Dipstick) 100 mg/dL (Neg-Trace); Specific Gravity, Urine 1.027 (1.002-1.036); Squamous Epithelial None Seen HPF (0-3); Urobilinogen Normal mg/dL (Less than 2); WBC/HPF Greater than 50 HPF (0-3); pH, Urine 5.5 (5.0-9.0)
[2024-02-01 12:07] LABS: Bacteria/HPF 1+ HPF (None Seen)
[2024-02-01] MEDS: methylPREDNISolone Sod Succ 40 MG VIAL IVP SCH (13:22)
[2024-02-01] MEDS: Fentanyl CADD 100 ML IV SCH (15:59)
[2024-02-01] MEDS: Lactated Ringer's 250 ML IV SCH (16:00)
[2024-02-01] MEDS: Lactated Ringer's 1,000 ML IV SCH (16:00)
[2024-02-01] MEDS: Allopurinol 100 MG TAB PER TUBE SCH (20:46)
[2024-02-01] MEDS: Lansoprazole 30 MG/10 ML UDCUP PER TUBE SCH (20:48)
[2024-02-01] MEDS: Atorvastatin Calcium 10 MG TAB PER TUBE SCH (20:48)
[2024-02-01] MEDS: Lisinopril 20 MG TAB PER TUBE SCH (20:50)
[2024-02-01] MEDS: Cefepime 1 GM in Sodium Chloride 0.9% 100 ML IVPB SCH (23:55)
[2024-02-02 03:34] LABS: #Basophils Less than 0.03 10x3/uL (0.0-0.2); #Eosinophils Less than 0.03 10x3/uL (0.0-0.7); %Basophils 0.1 % (0.0-1.0); %Lymphocytes 7.8 % (21.0-51.0); %Neutrophils 88.4 % (42.0-75.0); Hemoglobin 9.1 g/dL (12.0-16.0); Mean Corpuscular HGB CONC 31.4 g/dL (32.0-36.0); Mean Corpuscular Hemoglobin 24.8 pg (27.0-31.0); Mean Platelet Volume 10.1 fL (7.4-10.4); Platelet Count 295 10x3/uL (130-400); RBC Distribution Width 15.8 % (11.5-14.5); Red Blood Cell (RBC) Count 3.67 mill/uL (4.20-5.40)
[2024-02-02 04:49] LABS: ALT (SGPT) 19 U/L (8-55); AST (SGOT) 30 U/L (5-34); Albumin 2.4 g/dL (3.4-4.8); Alkaline Phosphatase 49 U/L (40-110); Anion Gap 17 mmol/L (10-20); BUN (Urea Nitrogen) 20 mg/dL (9.8-20.1); Bilirubin, Total 0.3 mg/dL (0.2-1.2); Calc. Creatinine Clearance 154 mL/min (70-130); Carbon Dioxide 20 mmol/L (23-31); Chloride 101 mmol/L (98-107); Estimated GFR 84; Globulin 3.2 g/dL (2.4-3.5); Glucose 319 mg/dL (83-110); Magnesium 1.8 mg/dL (1.6-2.6); Potassium 3.7 mmol/L (3.5-5.1); Protein, Total 5.6 g/dL (5.8-8.1); Sodium 134 mmol/L (136-145)
[2024-02-02 08:47] LABS: Actual Bicarbonate (HCO3a) 25.3 mEq/L (22-28); Base Excess (BEa) 0.3 mEq/L (-2.0 to +3.0); CO2 Tension 42.3 mmHg (35.0-45.0); Calcium, Ionized (arterial) 1.12 mmol/L (1.12-1.30); Carboxyhemoglobin (COHb) 0.8 gm% (0.0-3.0); Hematocrit-ABG 31 % (36.0-47.0); Hemoglobin (Hb) 10.6 g/dL (12.0-16.0); O2 Tension (PaO2), arterial 102.4 mmHg (> 70.0); Potassium - ABG Lab 3.51 mmol/L (3.70-5.30); pH, Arterial 7.395 (7.35-7.45)
[2024-02-02 08:49] LABS: ALV-art Gradient 201.225 mmHg (0-20); Puncture Site Right Radial artery
[2024-02-02] MEDS: Magnesium 2 GM/50 ML(in water) 2 GM in Premix 1 BAG IVPB SCH (10:05)
[2024-02-02] MEDS: Insulin Glargine 30 UNITS/0.3 ML VIAL SC SCH ×2 (10:09→21:27)
[2024-02-02] MEDS: Insulin Lispro 100 UNIT/ML 10 ML VIAL SC PRN ×2 (10:14→21:29)
[2024-02-02] MEDS: DULoxetine 60 MG CAP PO SCH (11:38)
[2024-02-02] MEDS: Sertraline 100 MG TAB PO SCH (11:38)
[2024-02-02] MEDS: Racepinephrine 2.25% 0.5 ML NEB NEB SCH (19:08)
[2024-02-03 03:45] LABS: #Basophils Less than 0.03 10x3/uL (0.0-0.2); #Eosinophils Less than 0.03 10x3/uL (0.0-0.7); %Basophils 0.1 % (0.0-1.0); %Lymphocytes 4.4 % (21.0-51.0); %Monocytes 3.5 % (0.0-10.0); %Neutrophils 91.3 % (42.0-75.0); Hematocrit 32.1 % (36.0-47.0); Hemoglobin 9.9 g/dL (12.0-16.0); Mean Corpuscular HGB CONC 30.8 g/dL (32.0-36.0); Mean Corpuscular Hemoglobin 24.6 pg (27.0-31.0); Mean Corpuscular Volume 79.9 fL (78.0-98.0); Platelet Count 326 10x3/uL (130-400); RBC Distribution Width 15.7 % (11.5-14.5); Red Blood Cell (RBC) Count 4.02 mill/uL (4.20-5.40)
[2024-02-03 04:23] LABS: ALT (SGPT) 22 U/L (8-55); AST (SGOT) 30 U/L (5-34); Albumin 2.7 g/dL (3.4-4.8); Alkaline Phosphatase 53 U/L (40-110); Anion Gap 15 mmol/L (10-20); BUN (Urea Nitrogen) 14 mg/dL (9.8-20.1); Bilirubin, Total 0.3 mg/dL (0.2-1.2); Calc. Creatinine Clearance 160 mL/min (70-130); Calcium 8.2 mg/dL (7.8-10.44); Carbon Dioxide 25 mmol/L (23-31); Chloride 100 mmol/L (98-107); Estimated GFR 85; Globulin 3.6 g/dL (2.4-3.5); Glucose 373 mg/dL (83-110); Potassium 3.5 mmol/L (3.5-5.1); Protein, Total 6.3 g/dL (5.8-8.1); Sodium 136 mmol/L (136-145)
[2024-02-03] MEDS ORDERED: Potassium Bicarbonate/Cit Ac 20 MEQ TAB PO SCH (08:00)
[2024-02-03] MEDS ORDERED: Potassium Bicarbonate/Cit Ac 20 MEQ TAB PER TUBE SCH ×2 (08:00)
[2024-02-03] MEDS ORDERED: Electrolyte Replacement Protocol FS PRN (08:15)
[2024-02-03] MEDS: Cholecalciferol 1,000 UNITS (25 MCG) TAB PO SCH (09:04)
[2024-02-03] MEDS: Potassium Bicarbonate/Cit Ac 20 MEQ TAB PO SCH (09:04)
[2024-02-03] MEDS: Pantoprazole DR 40 MG TAB PO SCH (09:04)
[2024-02-03] MEDS: Amlodipine 10 MG TAB PO SCH (09:05)
[2024-02-03] MEDS: Oseltamivir 75 MG CAP PO SCH (09:05)
[2024-02-03] MEDS: Cefepime 2 GM in Sodium Chloride 0.9% 100 ML IVPB SCH (13:11)
[2024-02-03 13:52] LABS: Potassium 4.1 mmol/L (3.5-5.1)
[2024-02-03] MEDS: Furosemide 20 MG (2 mL) VIAL SLOW IVP SCH (14:23)
[2024-02-03] MEDS: Magnesium 2 GM/50 ML(in water) 2 GM in Premix 1 BAG IVPB SCH (14:24)
[2024-02-03] MEDS: Furosemide 40 MG (4 mL) VIAL SLOW IVP SCH (17:45)
[2024-02-03] MEDS: Atorvastatin Calcium 10 MG TAB PO SCH (20:44)
[2024-02-03] MEDS: Allopurinol 100 MG TAB PO SCH (20:44)
[2024-02-03] MEDS: Lisinopril 20 MG TAB PO SCH (20:45)
[2024-02-03] MEDS: Acetaminophen/Codeine 30-300mg Tablet PO PRN (23:50)
[2024-02-04 06:09] LABS: #Basophils Less than 0.03 10x3/uL (0.0-0.2); #Eosinophils Less than 0.03 10x3/uL (0.0-0.7); %Basophils 0.1 % (0.0-1.0); %Monocytes 4.3 % (0.0-10.0); Mean Corpuscular Volume 79.3 fL (78.0-98.0)
[2024-02-04 06:38] LABS: ALT (SGPT) 21 U/L (8-55); AST (SGOT) 21 U/L (5-34); Albumin 2.8 g/dL (3.4-4.8); Alkaline Phosphatase 49 U/L (40-110); Anion Gap 11 mmol/L (10-20); BUN (Urea Nitrogen) 18 mg/dL (9.8-20.1); Bilirubin, Total 0.2 mg/dL (0.2-1.2); Calc. Creatinine Clearance 129 mL/min (70-130); Calcium 8.5 mg/dL (7.8-10.44); Carbon Dioxide 29 mmol/L (23-31); Chloride 98 mmol/L (98-107); Estimated GFR 66; Globulin 3.5 g/dL (2.4-3.5); Glucose 468 mg/dL (83-110); Magnesium 2.2 mg/dL (1.6-2.6); Potassium 3.7 mmol/L (3.5-5.1); Protein, Total 6.3 g/dL (5.8-8.1); Sodium 134 mmol/L (136-145)
[2024-02-04 07:58] LABS: %Eosinophils 0.1 % (0.0-10.0); %Lymphocytes 8.1 % (21.0-51.0); %Neutrophils 86.4 % (42.0-75.0); Hematocrit 31.8 % (36.0-47.0); Hemoglobin 9.8 g/dL (12.0-16.0); Mean Corpuscular HGB CONC 30.8 g/dL (32.0-36.0); Mean Corpuscular Hemoglobin 24.4 pg (27.0-31.0); Mean Platelet Volume 10.8 fL (7.4-10.4); Platelet Count 289 10x3/uL (130-400); RBC Distribution Width 15.9 % (11.5-14.5); Red Blood Cell (RBC) Count 4.01 mill/uL (4.20-5.40)
[2024-02-04] MEDS: Insulin Glargine 30 UNITS/0.3 ML VIAL SC SCH (09:56)
[2024-02-05] MEDS: Sodium Chloride 0.9% 100 ML ONE (00:25)
[2024-02-05] MEDS: Cefepime 2 GM VIAL ONE (00:25)
[2024-02-05] MEDS: Levothyroxine Sodium 125 MCG TAB PO SCH (05:05)
[2024-02-05 05:27] LABS: #Basophils Less than 0.03 10x3/uL (0.0-0.2); #Eosinophils Less than 0.03 10x3/uL (0.0-0.7); %Basophils 0.1 % (0.0-1.0); %Lymphocytes 10.8 % (21.0-51.0); %Monocytes 4.9 % (0.0-10.0); Hematocrit 33.1 % (36.0-47.0); Mean Corpuscular HGB CONC 30.2 g/dL (32.0-36.0); Mean Corpuscular Hemoglobin 24.4 pg (27.0-31.0); Mean Corpuscular Volume 80.9 fL (78.0-98.0); Mean Platelet Volume 10.3 fL (7.4-10.4); Platelet Count 301 10x3/uL (130-400); RBC Distribution Width 15.6 % (11.5-14.5); Red Blood Cell (RBC) Count 4.09 mill/uL (4.20-5.40)
[2024-02-05 07:00] LABS: ALT (SGPT) 24 U/L (8-55); AST (SGOT) 21 U/L (5-34); Albumin 2.9 g/dL (3.4-4.8); Alkaline Phosphatase 49 U/L (40-110); Anion Gap 13 mmol/L (10-20); BUN (Urea Nitrogen) 17 mg/dL (9.8-20.1); Bilirubin, Total 0.3 mg/dL (0.2-1.2); Calc. Creatinine Clearance 172 mL/min (70-130); Calcium 8.3 mg/dL (7.8-10.44); Carbon Dioxide 29 mmol/L (23-31); Chloride 100 mmol/L (98-107); Estimated GFR 93; Globulin 3.6 g/dL (2.4-3.5); Glucose 260 mg/dL (83-110); Magnesium 2.1 mg/dL (1.6-2.6); Potassium 3.7 mmol/L (3.5-5.1); Protein, Total 6.5 g/dL (5.8-8.1); Sodium 138 mmol/L (136-145)
[2024-02-05] MEDS: Insulin Glargine 30 UNITS/0.3 ML VIAL SC SCH (09:21)
[2024-02-05] MEDS: Budesonide 0.5 MG/2 ML NEB INH SCH (18:58)
[2024-02-06 06:17] LABS: #Basophils Less than 0.03 10x3/uL (0.0-0.2); #Eosinophils Less than 0.03 10x3/uL (0.0-0.7); %Basophils 0.2 % (0.0-1.0); %Lymphocytes 9.6 % (21.0-51.0); %Monocytes 6.3 % (0.0-10.0); %Neutrophils 82.5 % (42.0-75.0); Hemoglobin 10.5 g/dL (12.0-16.0); Mean Corpuscular HGB CONC 30.9 g/dL (32.0-36.0); Mean Corpuscular Hemoglobin 24.4 pg (27.0-31.0); Mean Corpuscular Volume 78.9 fL (78.0-98.0); Platelet Count 246 10x3/uL (130-400); Red Blood Cell (RBC) Count 4.31 mill/uL (4.20-5.40)
[2024-02-06 06:34] LABS: ALT (SGPT) 25 U/L (8-55); AST (SGOT) 24 U/L (5-34); Albumin 2.8 g/dL (3.4-4.8); Alkaline Phosphatase 45 U/L (40-110); Anion Gap 12 mmol/L (10-20); BUN (Urea Nitrogen) 15 mg/dL (9.8-20.1); Bilirubin, Total 0.4 mg/dL (0.2-1.2); Calc. Creatinine Clearance 177 mL/min (70-130); Calcium 8.5 mg/dL (7.8-10.44); Carbon Dioxide 30 mmol/L (23-31); Chloride 101 mmol/L (98-107); Estimated GFR 93; Globulin 3.4 g/dL (2.4-3.5); Glucose 177 mg/dL (83-110); Magnesium 1.9 mg/dL (1.6-2.6); Potassium 3.7 mmol/L (3.5-5.1); Protein, Total 6.2 g/dL (5.8-8.1); Sodium 139 mmol/L (136-145)
[2024-02-06] MEDS: Magnesium 2 GM/50 ML(in water) 2 GM in Premix 1 BAG IVPB SCH (08:15)
[2024-02-07 05:45] VITALS: BMI 58.0
[2024-02-07 07:01] LABS: Anion Gap 12 mmol/L (10-20); BUN (Urea Nitrogen) 17 mg/dL (9.8-20.1); Calc. Creatinine Clearance 156 mL/min (70-130); Calcium 8.4 mg/dL (7.8-10.44); Carbon Dioxide 30 mmol/L (23-31); Chloride 101 mmol/L (98-107); Estimated GFR 85; Glucose 193 mg/dL (83-110); Magnesium 2.1 mg/dL (1.6-2.6); Potassium 3.4 mmol/L (3.5-5.1); Sodium 140 mmol/L (136-145)
[2024-02-07] MEDS: Potassium Chloride 20 MEQ TAB PO SCH (08:59)
[2024-02-07] MEDS: methylPREDNISolone Sod Succ 40 MG VIAL IVP SCH (09:00)
[2024-02-07 12:24] VITALS: BMI 58.0
[2024-02-08 05:40] LABS: Anion Gap 13 mmol/L (10-20); BUN (Urea Nitrogen) 24 mg/dL (9.8-20.1); Calc. Creatinine Clearance 168 mL/min (70-130); Calcium 8.3 mg/dL (7.8-10.44); Carbon Dioxide 28 mmol/L (23-31); Chloride 101 mmol/L (98-107); Estimated GFR 92; Glucose 207 mg/dL (83-110); Potassium 3.8 mmol/L (3.5-5.1); Sodium 138 mmol/L (136-145)
[2024-02-08 11:27] VITALS: TEMP 98.1
[2024-02-08 15:47] VITALS: BP 135/78
== END 2024-02-08 16:00 | DRG 871 ==
LOC: ERS 19:41 → ERHOLD 23:24 → CCU 02-01 09:20 → T4-B 02-07 10:35
PROVIDERS: ADMIT Student in an Organized Health Care Education/Training Program; ATTEND Internal Medicine
PROC: 3E03329 Introduction of Other Anti-infective into Peripheral Vein, Percutaneous Approach (ICD-10-PCS; 2024-01-31)
PROC: 4A133R1 Monitoring of Arterial Saturation, Peripheral, Percutaneous Approach (ICD-10-PCS; principal; 2024-02-01)
PROC: 5A1935Z Respiratory Ventilation, Less than 24 Consecutive Hours (ICD-10-PCS; 2024-02-01)
DX: A41.9 Sepsis, unspecified organism (principal); G93.41 Metabolic encephalopathy; J96.01 Acute respiratory failure with hypoxia; J96.02 Acute respiratory failure with hypercapnia; Z68.43 Body mass index [BMI] 50.0-59.9, adult; N39.0 Urinary tract infection, site not specified; E66.2 Morbid (severe) obesity with alveolar hypoventilation; Z51.5 Encounter for palliative care; I10 Essential (primary) hypertension; J10.1 Influenza due to other identified influenza virus with other respiratory manifestations; E78.5 Hyperlipidemia, unspecified; E83.42 Hypomagnesemia; D64.9 Anemia, unspecified; J45.909 Unspecified asthma, uncomplicated; F39 Unspecified mood [affective] disorder; R65.20 Severe sepsis without septic shock; E87.6 Hypokalemia; F03.90 Unspecified dementia, unspecified severity, without behavioral disturbance, psychotic disturbance, mood disturbance, and anxiety; E11.65 Type 2 diabetes mellitus with hyperglycemia; Z88.8 Allergy status to other drugs, medicaments and biological substances; Z88.1 Allergy status to other antibiotic agents; Z91.041 Radiographic dye allergy status; Z90.49 Acquired absence of other specified parts of digestive tract
CPT/HCPCS: 31500; 36415; 36416; 36600; 51702; 70450; 71045; 80048; 80053; 80306; 80307; 81001; 82140; 82805; 83605; 83690; 83735; 84484; 85025; 86850; 86900; 86901; 87040; 87086; 87428; 93005; 94002; 94003; 94640; 96365; 96375; J0692; J1650; J1815; J1940; J2020; J2704; J2919; J3010; J3475; J7120; J7620; J7626

== ENCOUNTER 2024-10-02 08:20 | Outpatient (CLI) | payer MEDICARE, MEDICAID | END 2024-10-02 08:21 | disposition home or self-care (01) | LOC: NM 08:20 | PROVIDERS: ATTEND Internal Medicine Cardiovascular Disease | DX: I10 Essential (primary) hypertension (principal) | CPT/HCPCS: 78452; 93017; A9502; J2785 ×2 ==

== ENCOUNTER 2024-12-08 15:18 | Inpatient (IN) | payer MEDICARE, MEDICAID ==
[2024-12-08 16:58] LABS: Hematocrit 39.6 % (36.0-47.0); Hemoglobin 11.2 g/dL (12.0-16.0); Mean Corpuscular Hemoglobin 22.3 pg (27.0-31.0); Mean Corpuscular Volume 78.9 fL (78.0-98.0); Platelet Count 425 10x3/uL (130-400); Red Blood Cell (RBC) Count 5.02 mill/uL (4.20-5.40); White Blood Cell (WBC) Count 13.15 10x3/uL (4.8-10.8)
[2024-12-08 17:08] LABS: #Basophils 0.06 10x3/uL (0.0-0.2); #Eosinophils 0.58 10x3/uL (0.0-0.7); #Monocytes 0.67 10x3/uL (0.11-0.59); #Neutrophils 9.81 10x3/uL (1.40-6.50); %Basophils 0.5 % (0.0-1.0); %Eosinophils 4.4 % (0.0-10.0); %Lymphocytes 15.1 % (21.0-51.0); %Monocytes 5.1 % (0.0-10.0); %Neutrophils 74.6 % (42.0-75.0)
[2024-12-08 17:18] LABS: ALT (SGPT) 13 U/L (Less than 34); AST (SGOT) 24 U/L (11-34); Acetaminophen Less than 10 mcg/mL (Less than 10); Albumin 3.0 g/dL (3.1-4.5); Alkaline Phosphatase 63 U/L (40-110); Anion Gap 15 mmol/L (10-20); BUN (Urea Nitrogen) 10 mg/dL (9.8-20.1); Bilirubin, Total 0.6 mg/dL (0.3-1.2); Calc. Creatinine Clearance 0 mL/min (70-130); Calcium 8.9 mg/dL (7.8-10.44); Carbon Dioxide 31 mmol/L (23-31); Chloride 104 mmol/L (98-107); Globulin 3.4 g/dL (2.4-3.5); Glucose 141 mg/dL (83-110); Potassium 3.1 mmol/L (3.5-5.1); Salicylate Less than 8.0 mg/dL (Less than 8.0); Sodium 147 mmol/L (136-145)
[2024-12-08 17:27] LABS: Anisocytosis SLIGHT = 6-15 cells HPF (0-5); Burr Cells SLIGHT = 2-5 cells HPF (0-1); Macrocytosis SLIGHT = 6-15 cells HPF (0-5); Microcytosis SLIGHT = 6-15 cells HPF (0-5); Ovalocytes SLIGHT = 2-5 cells HPF (0-1); Platelet Adequacy Comment Platelets Increased; Polychromasia SLIGHT = 2-3 cells HPF (0-2)
[2024-12-08 18:41] LABS: Actual Bicarbonate (HCO3v) 30.0 mEq/L (22-28); Base Excess 4.2 mEq/L (-2.0 to +3.0); Calcium, Ionized (venous) 1.06 mmol/L (1.16-1.32); Chloride (VBG) 102 mmol/L (98-106); Hematocrit-VBG 34 % (36.0-47.0); Hemoglobin (Hb) 11.6 g/dL (11.7-16.1); Potassium (VBG) 2.91 mmol/L (3.70-5.30); Sodium 145 mmol/L (133-146)
[2024-12-08 19:06] LABS: Bacteria/HPF None Seen HPF (None Seen); CAUTI Indications for Culture Alt mental st,lethar; Glucose, Urine (Dipstick) Normal (Negative); Leukocyte 25 Leu/uL (Negative); Protein, Urine (Dipstick) 10 mg/dL (Neg-Trace); RBC/HPF 0-3 HPF (0-3); Specific Gravity, Urine 1.022 (1.002-1.036)
[2024-12-08 19:08] LABS: Urine Culture Reflex No No
[2024-12-08] MEDS ORDERED: Aspirin Chewable 81 MG TAB ONE (19:11)
[2024-12-08 19:15] LABS: Cocaine Metabolite Screen Negative (Negative); THC/Cannabinoid Screen Negative (Negative); Tricyclic Screen Negative (Negative)
[2024-12-08] MEDS ORDERED: Ondansetron PF 4 MG/2 ML Vial IVP PRN (19:36)
[2024-12-08 20:57] VITALS: BMI 55.2
[2024-12-08] MEDS ORDERED: Glucagon 1 MG/ML KIT IM PRN (22:19)
[2024-12-08] MEDS ORDERED: Dextrose 50% Abboject 50 ML SYRINGE SLOW IVP PRN (22:19)
[2024-12-08] MEDS ORDERED: Insulin Glargine 30 UNITS/0.3 ML VIAL ONE (23:00)
[2024-12-08] MEDS ORDERED: Lisinopril 20 MG TAB ONE (23:00)
[2024-12-08] MEDS: Lisinopril 20 MG TAB PO SCH (23:12)
[2024-12-08] MEDS: Insulin Glargine 30 UNITS/0.3 ML VIAL SC SCH (23:32)
[2024-12-09 09:27] LABS: #Basophils 0.06 10x3/uL (0.0-0.2); #Eosinophils 0.69 10x3/uL (0.0-0.7); #Monocytes 0.74 10x3/uL (0.11-0.59); #Neutrophils 9.81 10x3/uL (1.40-6.50); %Basophils 0.4 % (0.0-1.0); %Eosinophils 4.9 % (0.0-10.0); %Lymphocytes 19.4 % (21.0-51.0); %Monocytes 5.3 % (0.0-10.0); %Neutrophils 69.6 % (42.0-75.0); Hematocrit 39.6 % (36.0-47.0); Hemoglobin 11.0 g/dL (12.0-16.0); Mean Corpuscular Hemoglobin 22.0 pg (27.0-31.0); Mean Corpuscular Volume 79.2 fL (78.0-98.0); Platelet Count 444 10x3/uL (130-400); Red Blood Cell (RBC) Count 5.00 mill/uL (4.20-5.40); White Blood Cell (WBC) Count 14.09 10x3/uL (4.8-10.8)
[2024-12-09 09:32] LABS: ALT (SGPT) 16 U/L (Less than 34); AST (SGOT) 28 U/L (11-34); Albumin 3.2 g/dL (3.1-4.5); Alkaline Phosphatase 66 U/L (40-110); Anion Gap 16 mmol/L (10-20); BUN (Urea Nitrogen) 12 mg/dL (9.8-20.1); Bilirubin, Total 0.5 mg/dL (0.3-1.2); Calc. Creatinine Clearance 183 mL/min (70-130); Calcium 9.1 mg/dL (7.8-10.44); Carbon Dioxide 29 mmol/L (23-31); Chloride 104 mmol/L (98-107); Globulin 3.6 g/dL (2.4-3.5); Glucose 145 mg/dL (83-110); Potassium 3.0 mmol/L (3.5-5.1); Sodium 146 mmol/L (136-145)
[2024-12-09 09:57] LABS: Anisocytosis SLIGHT = 6-15 cells HPF (0-5); Microcytosis SLIGHT = 6-15 cells HPF (0-5); Platelet Adequacy Comment Platelets Increased; Polychromasia SLIGHT = 2-3 cells HPF (0-2)
[2024-12-09] MEDS: Metoprolol Succinate XL 25 MG ER.TAB PO SCH (09:59)
[2024-12-09] MEDS: Insulin Glargine 30 UNITS/0.3 ML VIAL SC SCH (09:59)
[2024-12-09] MEDS: Enoxaparin 40 MG (0.4 mL) SYRINGE SC SCH (09:59)
[2024-12-09] MEDS: Acetaminophen 325 MG TAB PO PRN (21:55)
[2024-12-10 16:17] VITALS: BMI 55.2
[2024-12-10] MEDS: Allopurinol 100 MG TAB PO SCH (20:53)
[2024-12-11 09:13] LABS: #Basophils 0.05 10x3/uL (0.0-0.2); #Eosinophils 0.42 10x3/uL (0.0-0.7); #Monocytes 0.72 10x3/uL (0.11-0.59); #Neutrophils 7.63 10x3/uL (1.40-6.50); %Basophils 0.4 % (0.0-1.0); %Eosinophils 3.7 % (0.0-10.0); %Lymphocytes 22.3 % (21.0-51.0); %Monocytes 6.3 % (0.0-10.0); %Neutrophils 66.9 % (42.0-75.0); Hematocrit 36.0 % (36.0-47.0); Hemoglobin 10.4 g/dL (12.0-16.0); Mean Corpuscular Hemoglobin 22.6 pg (27.0-31.0); Mean Corpuscular Volume 78.3 fL (78.0-98.0); Platelet Count 389 10x3/uL (130-400); Red Blood Cell (RBC) Count 4.60 mill/uL (4.20-5.40); White Blood Cell (WBC) Count 11.40 10x3/uL (4.8-10.8)
[2024-12-11 09:23] LABS: Anion Gap 14 mmol/L (10-20); BUN (Urea Nitrogen) 7 mg/dL (9.8-20.1); Calc. Creatinine Clearance 230 mL/min (70-130); Calcium 8.8 mg/dL (7.8-10.44); Carbon Dioxide 30 mmol/L (23-31); Chloride 101 mmol/L (98-107); Glucose 221 mg/dL (83-110); Potassium 3.1 mmol/L (3.5-5.1); Sodium 142 mmol/L (136-145)
[2024-12-11 09:46] LABS: Microcytosis SLIGHT = 6-15 cells HPF (0-5); Platelet Adequacy Comment Platelets Normal; Polychromasia SLIGHT = 2-3 cells HPF (0-2)
[2024-12-11 16:00] VITALS: TEMP 98.5
[2024-12-11 18:36] VITALS: BP 126/95
== END 2024-12-11 19:40 | DRG 206 ==
LOC: ERS 15:18 → ERHOLD 19:19 → T4-A 12-09 08:25
PROVIDERS: ADMIT Internal Medicine; ATTEND Internal Medicine
DX: E66.2 Morbid (severe) obesity with alveolar hypoventilation (principal); G93.40 Encephalopathy, unspecified; E23.0 Hypopituitarism; E87.0 Hyperosmolality and hypernatremia; J96.11 Chronic respiratory failure with hypoxia; Z68.43 Body mass index [BMI] 50.0-59.9, adult; E27.40 Unspecified adrenocortical insufficiency; K21.9 Gastro-esophageal reflux disease without esophagitis; E11.9 Type 2 diabetes mellitus without complications; E78.5 Hyperlipidemia, unspecified; K58.9 Irritable bowel syndrome, unspecified; I10 Essential (primary) hypertension; J45.909 Unspecified asthma, uncomplicated; M19.90 Unspecified osteoarthritis, unspecified site; Z88.8 Allergy status to other drugs, medicaments and biological substances; Z88.1 Allergy status to other antibiotic agents; M10.9 Gout, unspecified; F32.A Depression, unspecified; Z90.49 Acquired absence of other specified parts of digestive tract; Z98.890 Other specified postprocedural states; G47.00 Insomnia, unspecified; K59.00 Constipation, unspecified; E87.6 Hypokalemia; E03.9 Hypothyroidism, unspecified; Z88.5 Allergy status to narcotic agent; Z91.041 Radiographic dye allergy status; Z79.899 Other long term (current) drug therapy; Z79.890 Hormone replacement therapy; I48.0 Paroxysmal atrial fibrillation
CPT/HCPCS: 36415; 36416; 70450; 71045; 80048; 80053; 80306; 80307; 81001; 82024; 82533; 82607; 82805; 83605; 83880; 84439; 84443; 84484; 85025; 87040; 93005; 94640; J1650; J1815; J7030; J7626